=== PATIENT | female | born 1955 | race Caucasian/White ===

== ENCOUNTER 2020-03-17 09:43 | Outpatient (CLI) | payer MEDICARE, SELFPAY ==
[2020-03-17 10:50] LABS: Alanine Aminotransferase 16 U/L (4-35); Albumin Level 4.4 g/dL (3.5-5.1); Alkaline Phosphatase 75 U/L (38-126); Anion Gap 10 mmol/L (8-16); Aspartate Amino Transferase 21 U/L (14-36); Bilirubin,Total 0.8 mg/dL (0.2-1.3); Blood Urea Nitrogen 24 mg/dL (7-17); Calcium 10.2 mg/dL (8.4-10.2); Carbon Dioxide 28 mmol/L (22-30); Chloride 105 mmol/L (98-107); Cholesterol 139 mg/dL (0-200); Estimated Glomerular Filt Rate > 60; Glucose 107 mg/dL (65-105); HDL Direct 40 mg/dL; Potassium 4.8 mmol/L (3.4-5.0); Sodium 143 mmol/L (137-145); Triglycerides 94 mg/dL (<150)
[2020-03-17 11:07] LABS: LDL Cholesterol Direct 77 mg/dL
[2020-03-17 11:20] LABS: Thyroid Stimulating Hormone 0.631 uIU/mL (0.465-4.680)
[2020-03-18 04:02] LABS: Free T4 Free Thyroxine 1.22 ng/mL (0.78-2.19)
== END 2020-03-17 09:44 | disposition home or self-care (01) ==
PROVIDERS: PCP Internal Medicine; Visit Provider Nurse Practitioner
DX: E78.5 Hyperlipidemia, unspecified (principal); E03.9 Hypothyroidism, unspecified
CPT/HCPCS: 36415; 80053; 80061; 84439; 84443

== ENCOUNTER 2020-04-10 13:47 | Outpatient (CLI) | payer MEDICARE, SELFPAY ==
--- NOTE | ~2020-04-10 | XR_ITS ---
XR lumbar spine 2-3V 04/10/2020 14:13 Indication: Low back pain Procedure: 3 views lumbar spine Comparison: Comparison to multiple prior studies sequentially, with oldest reviewed study dated 11/2015. Findings: There is disc narrowing and endplate degenerative change at L1-2 and L2-3. There are mild f acet hypertrophic changes at L5-S1. No acute fracture or traumatic malalignment. There is atheroscler osis of the aorta. Mild superior endplate compression deformity of L3 which appears chronic. There ar e cholecystectomy clips. Impression: 1: Stable mild-moderate lumbar spondylosis. 2: Stable chronic mild superior endplate compression deformity. Reviewed, dictated and finalized at location B. Impression: 1: Stable mild-moderate lumbar spondylosis. 2: Stable chronic mild superior endplate compression deformity.
== END 2020-04-10 13:48 | disposition home or self-care (01) ==
PROVIDERS: PCP Internal Medicine; Visit Provider Internal Medicine
DX: M47.896 Other spondylosis, lumbar region (principal)
CPT/HCPCS: 72100

== ENCOUNTER 2020-04-24 16:59 | Outpatient (CLI) | payer MEDICARE, SELFPAY ==
--- NOTE | ~2020-04-24 | MR_ITS ---
EXAMINATION: MR lumbar spine wo con DATE: 04/24/2020 18:31 INDICATION: Low back pain. TECHNIQUE: Magnetic resonance imaging (MRI) of the lumbar spine was performed without intravenous con trast. Sequences included sagittal T2-weighted FSE, sagittal T2-weighted FS FSE, sagittal T1-weighted FSE, and axial T2-weighted FSE. COMPARISON: Lumbar spine MRI 12/19/2007 FINDINGS: There is 3 mm retrolisthesis of L1 on L2 and L2 on L3. Vertebral body heights are normal. T here is moderately decreased disc height at L1-L2 and mildly decreased disc height at L2-L3. The dist al spinal cord signal intensity is normal. The conus medullaris is at L1. The following disc levels a re specifically discussed: L1-L2: The disc is bulging and has an annular fissure. There is mild right facet joint osteoarthritis . There is mild bilateral neural foraminal stenosis. There is mild central canal stenosis. L2-L3: The disc is bulging with superimposed right subarticular extrusion with superior extension 11 mm to the infrapedicular level. There is mild bilateral facet joint osteoarthritis. There is mild rachael ateral neural foraminal stenosis. There is mild central canal stenosis. L3-L4: The disc is bulging. There is mild bilateral facet joint osteoarthritis. There is mild bilater al neural foraminal stenosis. There is mild central canal stenosis. L4-L5: The disc is mildly bulging. There is mild bilateral facet joint osteoarthritis. There is mild bilateral neural foraminal stenosis. There is no central canal stenosis. L5-S1: The disc does not extend beyond the endplate margin. There is mild bilateral facet joint osteo arthritis. There is no neural foraminal stenosis. There is no central canal stenosis. IMPRESSION: 1. Moderate lumbar spondylosis, worsened from 12/19/2007. Reviewed, dictated and finalized at location A. [employer] WORK[employer]
== END 2020-04-24 17:00 ==
PROVIDERS: PCP Internal Medicine; Visit Provider Nurse Practitioner
DX: M47.896 Other spondylosis, lumbar region (principal)
CPT/HCPCS: 72148

== ENCOUNTER 2020-09-15 09:49 | Outpatient (CLI) | payer MEDICARE, SELFPAY ==
[2020-09-15 10:23] LABS: Alanine Aminotransferase 18 U/L (4-35); Alkaline Phosphatase 72 U/L (38-126); Anion Gap 5 mmol/L (8-16); Aspartate Amino Transferase 26 U/L (14-36); Bilirubin,Total 1.4 mg/dL (0.2-1.3); Blood Urea Nitrogen 22 mg/dL (7-17); Calcium 9.2 mg/dL (8.4-10.2); Carbon Dioxide 29 mmol/L (22-30); Chloride 108 mmol/L (98-107); Cholesterol 155 mg/dL (0-200); Estimated Glomerular Filt Rate > 60; Glucose 89 mg/dL (65-105); HDL Direct 33 mg/dL; Potassium 4.2 mmol/L (3.4-5.0); Sodium 142 mmol/L (137-145); Triglycerides 130 mg/dL (<150)
[2020-09-15 10:34] LABS: LDL Cholesterol Direct 92 mg/dL
== END 2020-09-15 09:50 | disposition home or self-care (01) ==
PROVIDERS: PCP Internal Medicine; Visit Provider Internal Medicine
DX: I10 Essential (primary) hypertension (principal); Z79.899 Other long term (current) drug therapy; E78.5 Hyperlipidemia, unspecified; E03.9 Hypothyroidism, unspecified
CPT/HCPCS: 36415; 80053; 80061; 84443

== ENCOUNTER 2021-01-27 11:09 | Outpatient (CLI) | payer MEDICARE, SELFPAY ==
[2021-01-27 12:06] LABS: Alanine Aminotransferase 14 U/L (4-35); Albumin Level 4.1 g/dL (3.5-5.1); Alkaline Phosphatase 76 U/L (38-126); Anion Gap 6 mmol/L (8-16); Aspartate Amino Transferase 20 U/L (14-36); Bilirubin,Total 0.8 mg/dL (0.2-1.3); Blood Urea Nitrogen 19 mg/dL (7-17); Calcium 9.9 mg/dL (8.4-10.2); Carbon Dioxide 27 mmol/L (22-30); Chloride 108 mmol/L (98-107); Estimated Glomerular Filt Rate > 60; Glucose 95 mg/dL (65-110); HDL Direct 36 mg/dL; Potassium 4.9 mmol/L (3.4-5.0); Sodium 141 mmol/L (137-145); Triglycerides 94 mg/dL (<150)
[2021-01-27 12:12] LABS: Cholesterol 117 mg/dL (0-200)
[2021-01-27 12:16] LABS: LDL Cholesterol Direct 53 mg/dL
[2021-01-27 13:47] LABS: Vitamin D 25 Hydroxy 42.1 ng/mL
== END 2021-01-27 11:10 | disposition home or self-care (01) ==
PROVIDERS: PCP Internal Medicine; Visit Provider Nurse Practitioner
DX: E03.9 Hypothyroidism, unspecified (principal); E78.49 Other hyperlipidemia; E55.9 Vitamin D deficiency, unspecified; N95.1 Menopausal and female climacteric states
CPT/HCPCS: 36415; 80053; 80061; 82306; 84443

== ENCOUNTER 2021-01-28 09:20 | Outpatient (CLI) | payer MEDICARE, SELFPAY ==
[2021-01-28 09:40] LABS: Basophils Percent Auto 0.4 % (0.2-1.2); Eosinophils Absolute Auto 0.2 K/mm3 (0-0.3); Eosinophils Percent Auto 2.3 % (0-4.4); Hematocrit 39.9 % (37.0-47.0); Immature Granulocyte Absolute 0.03 K/mm3 (0.00-0.031); Immature Granulocyte Percent A 0.4 % (0-0.5); Lymphocytes Absolute Auto 1.95 K/mm3 (0.9-3.2); Mean Corpuscular HGB Conc 32.6 g/dl (32-36); Mean Corpuscular Hemoglobin 28.4 pg (26-34); Mean Corpuscular Volume 87.3 fl (80-100); Mean Platelet Volume 9.8 fl (7.4-10.4); Monocytes Absolute Auto 0.4 K/mm3 (0.1-0.6); Monocytes Percent Auto 4.9 % (2.6-8.5); Neutrophils Absolute Auto 5.2 K/mm3 (1.3-6.7); Platelet Count Result 195 k/mm3 (150-375); Red Blood Count 4.57 M/mm3 (4.2-5.4); Red Cell Distribution Width 14.5 % (11.5-14.5); White Blood Count 7.8 K/mm3 (4.5-10.0)
[2021-01-28 10:23] LABS: Add Urine Microscopic? YES; Appearance Urine Clear (Clear); Bilirubin Urine Negative (Negative); Blood Urine Negative (Negative); Color Urine Yellow (Yellow); Glucose Urine UA Negative (Negative); Ketones Urine Negative (Negative); Leukocyte Esterase Ur 3+ LEU/UL (Negative); Mucus Urine Rare /lpf; Nitrate Urine Negative (Negative); Protein Urine Negative (Negative); RBC Urine 0-2 /hpf (0-2); Specific Grav Ur 1.018 (1.001-1.035); Squamous Epithelial Cell Urine Occasional /hpf (Few); Urobilinogen Urine Negative mg/dL (<2.0); WBC Urine 16-20 /hpf
[2021-01-28 10:25] LABS: Iron 57 ug/dL (37-170)
[2021-01-28 10:35] LABS: Percent Iron Saturation 17 % (20-50)
== END 2021-01-28 09:21 | disposition home or self-care (01) ==
LOC: ANHLAB 09:23
PROVIDERS: PCP Internal Medicine; Visit Provider Nurse Practitioner
DX: R53.83 Other fatigue (principal); R32 Unspecified urinary incontinence
CPT/HCPCS: 36415; 81001; 83540; 83550; 85025; 87086; 87088

== ENCOUNTER 2021-02-02 08:30 | Outpatient (RCR) | payer MEDICARE, SELFPAY ==
--- NOTE | 2021-01-02 09:21 | PTOPEVAL ---
PHYSICAL THERAPY EVALUATION Thank you for referring Makenna Sauceda to [facility].? Denzel was evaluated for the dx of low back pain/radiculopathy. The patient is scheduled to be seen for therapy? 2 x/week for 4 weeks. Please review, sign, date and return this plan of care KARISSA. I agree with and certify that the following plan of care is medically necessary. Referring Physician Date Attending Provider: Jaspal Mcknight DO Referring Provider: *RICHARD Outpatient Evaluation Start: 01/02/21 08:05 Freq: Status: Active Protocol: Document 01/02/21 08:05 MLV (Rec: 01/02/21 09:06 MLV [email or web address]) Therapy Assessment Status Assessment Status Assessment Status Evaluation Evaluation Information Problem Diagnosis low back pain Onset 1 year increased pain Cause overlifting lately Additional Evaluation Detail The patient reports a long hx of low back pain since before 2007 then pain has gotten worse in the last year. The pateint was sent to pain mgmt and offered injections but is looking to see a different MD for this. The patient lives home alone and helps with her significant other physically, and does all of the household tasks/shopping etc. The patient patient takes tramadol but reports poor relief with it. Subjective Information Patient must assist her Query Text:As Reported By Patient/ significant other or is not Family able to stay living there and she has no other options for living. Diagnostic Tests X-Rays For This Problem Yes: worsening spondylosis Previous Treatments Previous Treatments For This Problem never had therapy for back pain Pain Assessment Timing of Pain Assessment Timing of Pain Assessment Assessment Pain Scale Pain Scale Used Numeric (1 - 10) Self Report Pain Assessment Lower Back Reported Pain Level 5 Pain Description Dull,Shooting,Tender on Palpation Pain Radiation Left Shoulder,Right Leg,Right Shoulder Radicular Pain Location right leg Pain Frequency Chronic,Continuous Greatest Pain Intensity 8 Pain Aggravating Factors Lifting,Weight Bearing/ Standing Pain Score
--- NOTE | 2021-01-21 14:52 | PCPTNOTE ---
Patient called and states she is not feeling well and cannot make it in to therapy this date.
--- NOTE | 2021-02-02 09:00 | PTOPEVAL ---
PHYSICAL THERAPY DISCHARGE Thank you for referring Makenna Sauceda to [facility].? The patient has completed 8 visits for dx of low back pain. Goals minimally/not met. DC PT. Please review, sign, date and return this plan of care KARISSA. I agree with and certify the following plan of care. Referring Physician Date Attending Provider: Jaspal Mcknight DO Referring Provider: *PT Outpatient discharge Start: 01/02/21 08:05 Freq: Status: Active Protocol: Document 02/02/21 08:38 MLV (Rec: 02/02/21 09:00 MLV [id number]) Therapy Assessment Status Assessment Status Assessment Status Discharge Evaluation Information Problem Diagnosis low back pain Onset 1 year increased pain Cause overlifting lately Additional Evaluation Detail The patient feels she is about 50% better overall and feels the therapy was very tolerable, but the pain is only relieved somewhat. The patient understands that her daily activities affect her pain due to caring for her significant other, but she has to do it. The patient reports having an appt today for pain mgmt. Pain Assessment Timing of Pain Assessment Timing of Pain Assessment Assessment Pain Scale Pain Scale Used Numeric (1 - 10) Self Report Pain Assessment Lower Back Reported Pain Level 6 Pain Description Dull,Heavy Pain Frequency Continuous Pain Score Pain Score 6: Self Report Interventions Used Interventions Used By Clinicians Education,Electrical Stimulation,Exercise,Heat, Manual Therapy Techniques Pain Relief Interventions Used By Exercise,Heat,Medication, Patient Position Change Other Alleviating Interventions tramadol Cervical and Lumbar ROM Lumbar ROM Lumbar Flexion Active [place] Query Text:Hands to: Lumbar Extension (0-40) 20 Query Text:Active in Degrees Lumbar Lateral Flexion Right (0-40) 30 Query Text:Active in Degrees Lumbar Lateral Flexion Left (0-40) 30 Query Text:Active in Degrees Lateral Rotation Right (0-45) 40 Query Text:Active in Degrees Lateral Rotation Left (0-45) 40 Query Text:Active in Degrees Lumbar Comments pain with flexion, left lat flexion, right rotation Lower Extremity Range of Motion General Lower Extremity Range of Motion Reason Not Measured
== END 2021-02-03 14:23 | disposition home or self-care (01) ==
LOC: ANHPT 08:30
PROVIDERS: PCP Internal Medicine; Visit Provider Internal Medicine
DX: M54.42 Lumbago with sciatica, left side (principal); G89.29 Other chronic pain
CPT/HCPCS: 97014; 97110; 97140; 97162; 97530; G0283

== ENCOUNTER 2021-02-13 13:52 | Outpatient (CLI) | payer MEDICARE, SELFPAY ==
--- NOTE | ~2021-02-13 | CT_ITS ---
EXAMINATION: CT abdomen pelvis wo con DATE: 02/13/2021 14:17 INDICATION: Left flank pain. History kidney stones. Hematuria. TECHNIQUE: Computed tomography (CT) of the abdomen and pelvis was performed without intravenous contr ast. Automated exposure control and iterative reconstruction technique were employed. Exam dose: 180 .12 mGy-cm total exam DLP. COMPARISON: 10/28/[address] abdomen pelvis FINDINGS: Mild discoid atelectasis or scarring in the lower lung zones. Normal heart size. No pericar dial or pleural effusion. Small sliding hiatal hernia. Status post cholecystectomy; this may account for prominence of the extrahepatic bile ducts. Recommen d correlation with serum bilirubin.. Calcified hepatic and splenic granulomas. No hepatic, splenic, pancreatic, adrenal or renal space-occ upying mass lesion is evident on this limited noncontrast examination. There is a small nonobstructing mid right renal calculus. No other urinary tract calculus or hydroure teronephrosis is detected. The urinary bladder is largely evacuated and not optimally evaluated. There is atherosclerotic calcification but normal caliber of the abdominal aorta. No intraperitoneal or retroperitoneal or pelvic mass lesion or adenopathy or ascites. No bowel obstruction, bowel wall thickening, pneumatosis or intraperitoneal free air is evident. No e vidence of appendicitis is detected. Included skeletal structures are unremarkable other than degenerative changes of the thoracic and lum bar spine. IMPRESSION: Small sliding hiatal hernia Status post cholecystectomy, which may account for mild prominence of the extrahepatic bile ducts. Re commend correlation with serum bilirubin Small nonobstructing mid right renal calculus Reviewed, dictated and finalized at Location A. Reviewed, dictated and finalized at location A. IMPRESSION: Small sliding hiatal hernia Status post cholecystectomy, which may account for mild prominence of the extra hepatic bile ducts. Recommend correlation with serum bilirubin Small nonobstructing mid right renal calculus
--- NOTE | ~2021-02-13 | XR_ITS ---
XR abdomen/kub 1V DATE: 02/13/2021 14:19 INDICATION: Left flank pain. History of kidney stones. TECHNIQUE: AP projection, 2 views COMPARISON: 02/13/2021 CT abdomen pelvis FINDINGS: Surgical clips, right upper quadrant, consistent with cholecystectomy. Surgical clips in the medial right upper abdomen. No bowel obstruction is detected. The psoas shadows are intact. No visceromegaly is evident. The lower lung zones are clear. IMPRESSION: Nonspecific abdomen; no obvious urinary tract calcification Reviewed, dictated and finalized at Location A. Reviewed, dictated and finalized at location A.
== END 2021-02-13 13:53 | disposition home or self-care (01) ==
LOC: ANHIMG 13:53
PROVIDERS: PCP Internal Medicine; Visit Provider Urology
DX: K44.9 Diaphragmatic hernia without obstruction or gangrene (principal); Z90.49 Acquired absence of other specified parts of digestive tract; N20.0 Calculus of kidney
CPT/HCPCS: 74018; 74176

== ENCOUNTER 2021-03-25 09:33 | Outpatient (CLI) | payer MEDICARE, SELFPAY ==
--- NOTE | ~2021-03-25 | XR_ITS ---
XR shoulder LT min 2V DATE: 03/25/2021 10:01 INDICATION: Left shoulder pain following a fall TECHNIQUE: 4 views COMPARISON: None FINDINGS: There is degenerative change of the left acromioclavicular joint. No fracture or dislocation, periosteal reaction or bone destruction or abnormal left shoulder soft ti ssue calcification is noted. IMPRESSION: Degenerative change at left acromioclavicular joint Reviewed, dictated and finalized at location A.
== END 2021-03-25 09:34 | disposition home or self-care (01) ==
LOC: ANHIMG 09:40
PROVIDERS: PCP Internal Medicine; Visit Provider Internal Medicine
DX: M19.012 Primary osteoarthritis, left shoulder (principal)
CPT/HCPCS: 73030

== ENCOUNTER 2021-04-01 13:04 | Outpatient (CLI) | payer MEDICARE, SELFPAY ==
--- NOTE | ~2021-04-01 | XR_ITS ---
XR foot RT min 3V DATE: 04/01/2021 13:26 INDICATION: Right foot pain following ground-level fall 2 weeks ago TECHNIQUE: 4 views COMPARISON: 09/22/2017 right foot FINDINGS: Mild plantar calcaneal enthesopathy, without erosive change or periostitis. Mild osteoarthritis at the first metatarsophalangeal joint. No fracture, dislocation, periosteal reaction or bone destruction. IMPRESSION: Mild plantar calcaneal enthesopathy Mild osteoarthritis at first metatarsophalangeal joint Reviewed, dictated and finalized at location B.
--- NOTE | ~2021-04-01 | XR_ITS ---
XR hip RT min 2V DATE: 04/01/2021 13:27 INDICATION: Right hip pain following ground-level fall 2 weeks ago TECHNIQUE: AP and lateral views COMPARISON: 05/25/2016 pelvis and bilateral hips FINDINGS: No fracture or dislocation, avascular necrosis or bone destruction of the right hip. Osteopenia. IMPRESSION: Osteopenia Reviewed, dictated and finalized at location B. IMPRESSION: Osteopenia
--- NOTE | ~2021-04-01 | XR_ITS ---
XR knee RT 3V DATE: 04/01/2021 13:26 INDICATION: Right knee pain following ground-level fall 2 weeks ago TECHNIQUE: 3 views COMPARISON: None FINDINGS: Osteopenia. No fracture or dislocation or joint effusion. Joint spaces are relatively prese rved. No radiopaque intra-articular loose body or chondrocalcinosis. IMPRESSION: Osteopenia Reviewed, dictated and finalized at location B. IMPRESSION: Osteopenia
== END 2021-04-01 13:05 | disposition home or self-care (01) ==
LOC: ANHIMG 13:06
PROVIDERS: PCP Internal Medicine; Visit Provider Internal Medicine
DX: M77.31 Calcaneal spur, right foot (principal); M85.861 Other specified disorders of bone density and structure, right lower leg; M85.851 Other specified disorders of bone density and structure, right thigh
CPT/HCPCS: 73502; 73562; 73630

== ENCOUNTER 2021-04-06 08:53 | Outpatient (CLI) | payer MEDICARE, SELFPAY ==
--- NOTE | ~2021-04-06 | MR_ITS ---
EXAMINATION: MR shoulder LT wo con DATE: 04/06/2021 09:33 INDICATION: Specified left shoulder pain TECHNIQUE: Magnetic resonance imaging (MRI) of the left shoulder was performed without intravenous co ntrast. Sequences included axial PD-weighted FS FSE, coronal oblique PD-weighted FS FSE, coronal obli que T2-weighted FS FSE, sagittal PD-weighted FS FSE, and sagittal T1-weighted SE. COMPARISON: None. FINDINGS: Coracoacromial arch: The acromion undersurface is curved in morphology (type II). The coracoacromial ligament is normal. M ild acromioclavicular osteoarthritis. Small loose body versus heterotopic ossicle along the cephalad capsule of the joint space. Rotator cuff: Mild supraspinatus and infraspinatus tendinopathy without discrete tear. The teres minor and subscapu thai tendons are normal. Normal rotator cuff muscle bulk and signal. Biceps tendon, glenoid labrum and glenohumeral cartilage: Long head of the biceps tendon is normal. Normal [place] complex with absent anterosuperior glenoid la lydia and thickened cordlike middle glenohumeral ligament. There is a superior, anterior to posterior tear of the glenoid labrum (SLAP tear) at the 12:00-11:00 position. There is mild partial-thickness c artilage loss with smooth chondral surface at the apex of the humeral head. Otherwise normal glenohum eral cartilage. Fluid: Minimal glenohumeral joint effusion at the axillary recess and deep subscapular recess. Proportional small amount of fluid in the long head biceps tendon sheath. No loose osteochondral bodies. Mild incr eased fluid signal in the subacromial/subdeltoid bursa consistent with minimal bursitis. Bones: Normal marrow signal with no edema, fracture or pathologic marrow replacing process. IMPRESSION: 1. Normal variant glenoid labral [place] complex with small SLAP tear at the superior glenoid labrum. 2. Mild acromioclavicular and minimal glenohumeral osteoarthritis. 3. Supraspinatus and infraspinatus tendinopathy without discrete tear. 4. Minimal glenohumeral bursitis. Reviewed, dictated and finalized at location A. IMPRESSION: 1. Normal variant glenoid labral [place] complex with small SLAP tear at the sup erior glenoid labrum. 2. Mild acromioclavicular and minimal glenohumeral osteoarthritis. 3. Supraspinatus and infraspinatus tendinopathy without discrete tear. 4. Minimal glenohumeral bursitis.
== END 2021-04-06 08:54 | disposition home or self-care (01) ==
PROVIDERS: PCP Internal Medicine; Visit Provider Internal Medicine
DX: M75.52 Bursitis of left shoulder (principal); M19.012 Primary osteoarthritis, left shoulder; S43.432A Superior glenoid labrum lesion of left shoulder, initial encounter
CPT/HCPCS: 73221

== ENCOUNTER 2021-07-02 12:30 | Outpatient (RCR) | payer MEDICARE, SELFPAY ==
--- NOTE | 2021-04-15 15:02 | PTOPEVAL ---
Thank you for referring Makenna Sauceda to [facility].? The patient is scheduled to be seen for therapy? 1-2 x/week for 5 weeks. Please review, sign, date and return this plan of care KARISSA. I agree with and certify that the following plan of care is medically necessary. Referring Physician Date Attending Provider: Jaspal Mcknight DO Diagnosis left knee, hip and ankle pain Onset 03/20/21 Additional Evaluation Detail She had a fall on 03/20/21 over lawn edging at a commercial property. She does not want her left shoulder addressed at this time until she has a f/u with orthopedic MD on 04/22/21. She had a MRI of shoulder indicating a tear. She is retired. 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 Subjective Information She c/o anterior/lateral hip Query Text:As Reported By Patient/ pain which gives out at home Family . She will be standing or walking when it gives out. She reports increased pain with prolonged sitting. She is limited with sleeping on right side with hypersensitivity of ankle with pressure. She is limited with standing, walking, steps, ADL's, squating and remote sensing specialist. She has 30 steps at home with railing. Pain Assessment Right Foot/Feet Reported Pain Level 3 Pain Description Aching Pain Frequency Continuous Lowest Pain Intensity 3 Greatest Pain Intensity 5 Pain Aggravating Factors ADL's,Bending,Exercise/ Activity,Lifting,Walking, Weight Bearing/Standing Right Knee(s) Reported Pain Level 4 Pain Description Soreness,Tender on Palpation Pain Frequency Continuous Lowest Pain Intensity 4 Greatest Pain Intensity 7 Pain Aggravating Factors ADL's,Bending,Exercise/ Activity,Lifting,Procedure or Surgery,Stair Climbing,Walking ,Weight Bearing/Standing Right Hip(s) Reported Pain Level 5 Pain Description Alfie
--- NOTE | 2021-04-21 11:24 | PCPTNOTE ---
Patient did not show up for scheduled appointment this date. Called & patient stated she forgot.
--- NOTE | 2021-04-30 09:52 | PCPTNOTE ---
Patient did not show up for scheduled appointment this date.Called pt who stated she forgot and was busy and could not talk.
[2021-05-08 13:29] VITALS: BP_SYST 110
--- NOTE | 2021-05-08 16:11 | PTOPEVAL ---
Thank you for referring Makenna Sauceda to [facility] [place].?Assessment completed for left shoulder impairment. Will continue f/u visits to address UE and LE impairments. New goals added to POC. The patient is scheduled to be seen for therapy 1-2 x/week for 8 weeks. Please review, sign, date and return this plan of care KARISSA. I agree with and certify that the following plan of care is medically necessary. Referring Physician Date Attending Provider: Jaspal Mcknight DO Referring Provider: Dr. Shon Miller Diagnosis left shoulder pain Onset 03/20/21 Additional Evaluation Detail She had a fall on 03/20/21 over lawn edging at a commercial property. MRI: 1.small SLAP tear at the superior glenoid labrum. 2. Mild acromioclavicular and minimal glenohumeral osteoarthritis. 3. Supraspinatus and infraspinatus tendinopathy without discrete tear. 4. Minimal glenohumeral bursitis. Subjective Information She has been assessed for her Query Text:As Reported By Patient/ right LE impairement. After Family her f/u with ortho doctor, he also wants her to receive therapy for the left shoulder. She reports limitations with reaching motions in all directions, lying on left side , ADL's for donning/doffing tops, carrying or lifting objects. She has trouble sleeping due to pain. She states she needs medication to help her with the pain. Pain Assessment Left Shoulder(s) Reported Pain Level 8 Pain Description Aching,Tender on Palpation Pain Frequency Continuous Lowest Pain Intensity 6 Greatest Pain Intensity 10 Pain Aggravating Factors ADL's,Exercise/Activity, Lifting,Palpation,Prolonged Position Upper Extremity Range of Motion Scapular/ Shoulder Range of Motion Left Scapular: Retraction Hypomobile Scapular: Protraction Hypomobile Scapular Downward Rotation Hypomobile Scapular Upward Rotation Hypomobile Shoulder Flexion - Active 70 Shoulder Flexion - Passive 90 Shoulder Extension - Active 25
--- NOTE | 2021-06-18 07:28 | PCPTNOTE ---
Patient called & cancelled scheduled appointment this date, patient's request.
--- NOTE | 2021-06-23 12:41 | PCPTNOTE ---
Patient called & cancelled scheduled appointment this date due to not feeling well.
--- NOTE | 2021-06-25 11:59 | PCPTNOTE ---
Patient called & cancelled scheduled appointment this date due to being Covid +
[2021-07-02 12:28] VITALS: BP_SYST 85
--- NOTE | 2021-07-02 14:48 | PTOPEVAL ---
Physical Therapy Discharge Summary Thank you for referring Makenna Sauceda to [facility] [place].?Makenna has been seen for 7 therapy visits with extended periods of missed therapy visits. She has partially achieved her therapy goals at this time. See summary below for objective measures and assessment. Per pt request, will DC skilled therapy services at this time. Please review, sign, date and return this discharge summary KARISSA. I agree with and certify that the following plan of care is medically necessary. Referring Physician Date Attending Provider: Jaspal Mcknight DO Referring Provider: Dr. Shon Miller MD Diagnosis left shoulder pain, right foot /knee and hip pain Onset 03/20/21 Additional Evaluation Detail She had a fall on 03/20/21 over lawn edging at a commercial property. MRI: 1.small SLAP tear at the superior glenoid labrum. 2. Mild acromioclavicular and minimal glenohumeral osteoarthritis. 3. Supraspinatus and infraspinatus tendinopathy without discrete tear. 4. Minimal glenohumeral bursitis. Subjective Information Reports the injection helped Query Text:As Reported By Patient/ with her pain for 1 wk. She Family has increased pain with prolonged sleeping on left side and increased use of left UE. Reports her leg and ankle are sore to the touch. She thinks she broke a bone with her fall. Denies any issued with her right hip, but cont pain with knee and ankle. Cont to c/o of her right knee giving out with steps. c/o pain on the lateral aspect of foot. Pain Assessment Left Shoulder(s) Reported Pain Level 6 Pain Description Aching,Tender on Palpation Pain Frequency Chronic,Continuous Lowest Pain Intensity 6 Greatest Pain Intensity 9 Pain Aggravating Factors Exercise/Activity,Prolonged Position Right Foot/Feet Reported Pain Level 0 Pain Description Aching Lowest Pain Intensity 0 Greatest Pain Intensity 5 Pain Aggravating Factors Prolonged Position Right Knee(s) Reported Pain Level
== END 2021-07-03 14:23 | disposition home or self-care (01) ==
LOC: ANHPT 12:30
PROVIDERS: PCP Internal Medicine; Visit Provider Internal Medicine
DX: M25.559 Pain in unspecified hip (principal); M25.519 Pain in unspecified shoulder; M79.671 Pain in right foot; W19.XXXA Unspecified fall, initial encounter
CPT/HCPCS: 97110; 97116; 97140; 97162

== ENCOUNTER 2021-07-27 15:55 | Emergency (ER) | payer MEDICARE, SELFPAY ==
[2021-07-27 16:08] VITALS: BP 174/106; PULSE 68; RESP 18; TEMP 36.6; O2SAT 100
--- NOTE | 2021-07-27 16:37 | ED.GENADULT ---
HPI - General Adult General Chief complaint: Dental/Oral Stated complaint: Facial Swelling Time Seen by Provider: 07/27/21 16:22 Source: patient and RN notes reviewed Mode of arrival: ambulatory Limitations: no limitations History of Present Illness HPI narrative: Patient presents today complaining of pain to the upper gumline since last night with swelling to the face and warmth that started today. She currently rates her pain 7/10. She took half of a Lorman that she takes chronically for possible rotator cuff tear with some relief. Denies fever, shortness of breath, or difficulty swallowing. MD complaint: Facial swelling Related Data Home Medications Medication Instructions Recorded Confirmed aspirin 81 mg tablet,delayed 81 mg PO DAILY 06/27/19 07/27/21 release meclizine 25 mg tablet 25 mg PO DAILY tablet 09/15/20 07/27/21 metoprolol tartrate 25 mg tablet 25 mg PO DAILY tablet 10/13/20 07/27/21 nitroglycerin 0.4 mg sublingual 0.4 mg SUBLINGUAL Q5M PRN 10/13/20 07/27/21 tablet Allergies Allergy/AdvReac Type Severity Reaction Status Date / Time ibuprofen Allergy Dyspnea / Verified 07/27/21 16:40 SOB iodine AdvReac Swelling Verified 07/13/21 11:23 of Lip/Tongue/Throat shellfish derived AdvReac Swelling Verified 07/13/21 11:23 of Lip/Tongue/Throat Review of Systems Review of Systems: CONSTITUTIONAL: Denies body aches, fever, chills, or sweats. EYES: Denies visual changes, redness, or discharge. ENT: Denies rhinorrhea, congestion, sore throat, or otalgia.+ Facial swelling, gum pain CARDIOVASCULAR: Denies chest pain, palpitations, or edema. RESPIRATORY: Denies cough or dyspnea. GASTROINTESTINAL: Denies abdominal pain, nausea, vomiting, or diarrhea. GENITOURINARY: Denies dysuria or hematuria. SKIN: Denies rash, itching, or wounds. MUSCULOSKELETAL: Denies back pain, joint pain, or myalgia. NEUROLOGIC: Denies headache, numbness, tingling, or weakness. PSYCH: Denies depression or anxiety. 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 Depression with anxiety Essential (primary) hypertension Fatigue Gastroesophageal reflux disease with esophagitis Grief reaction History of stress test Hx of adenomatous colonic polyps Hx of renal calculi Hx of renal cell cancer Hyperlipidemia Left flank pain Low back pain potentially associated with radiculopathy Major depressive disorder, single episode, unspecified Medication management Nonintractable headache Osteopenia after menopause Other insomnia Postmenopausal disorder Primary osteoarthritis of both hands Psoriasis Rotator cuff tear Skin tag History of Excision of (under both arms) Urinary Incontinence Vitamin D deficiency Vitamin D deficiency, unspecified Surgical History Surgical History History of coronary artery stent placement History of cryosurgery Cryoablation for removal of renal cancer History of hysterectomy (~1991) Family History Family History Sibling Patient's brother is in good health Family history of malignant neoplasm of kidney Father Cerebrovascular accident Family history of malignant neoplasm of kidney Patient's father is Mother Family history of chronic obstructive pulmonary disease Family history of lung cancer Patient's mother is Cerebrovascular accident Other Diabetes mellitus Family history of arthritis Family history of lupus erythematosus Family history of malignant neoplasm Hypertension Social History Social History Smoking status: Never smoker Second h
== END 2021-07-27 16:47 | disposition home or self-care (01) ==
PROVIDERS: Emergency Provider Nurse Practitioner; PCP Internal Medicine
DX: K04.7 Periapical abscess without sinus (principal); E03.9 Hypothyroidism, unspecified; K21.00 Gastro-esophageal reflux disease with esophagitis, without bleeding; E78.5 Hyperlipidemia, unspecified; M81.0 Age-related osteoporosis without current pathological fracture; M19.042 Primary osteoarthritis, left hand; M19.041 Primary osteoarthritis, right hand; Z79.82 Long term (current) use of aspirin; Z95.5 Presence of coronary angioplasty implant and graft
CPT/HCPCS: 99213; G0463

== ENCOUNTER 2021-08-11 10:07 | Outpatient (CLI) | payer MEDICARE, SELFPAY ==
[2021-08-11 10:55] LABS: Alanine Aminotransferase 16 U/L (4-35); Alkaline Phosphatase 61 U/L (38-126); Anion Gap 7 mmol/L (8-16); Aspartate Amino Transferase 23 U/L (14-36); Blood Urea Nitrogen 17 mg/dL (7-17); Calcium 9.1 mg/dL (8.4-10.2); Carbon Dioxide 25 mmol/L (22-30); Chloride 107 mmol/L (98-107); Cholesterol 110 mg/dL (0-200); Estimated Glomerular Filt Rate > 60; Glucose 82 mg/dL (65-110); HDL Direct 39 mg/dL; Sodium 139 mmol/L (137-145); Triglycerides 80 mg/dL (<150)
[2021-08-11 11:06] LABS: LDL Cholesterol Direct 53 mg/dL
[2021-08-11 11:12] LABS: Vitamin D 25 Hydroxy 19.5 ng/mL
== END 2021-08-11 10:08 | disposition home or self-care (01) ==
PROVIDERS: PCP Internal Medicine; Visit Provider Nurse Practitioner
DX: E55.9 Vitamin D deficiency, unspecified (principal); E78.49 Other hyperlipidemia; E03.9 Hypothyroidism, unspecified
CPT/HCPCS: 36415; 80053; 80061; 82306; 84443

== ENCOUNTER 2022-03-02 16:23 | Emergency (ER) | payer MEDICARE, SELFPAY ==
[2022-03-02 16:39] VITALS: BP 122/45; PULSE 51; RESP 18; TEMP 35.4; O2SAT 99
--- NOTE | 2022-03-02 17:17 | ED.FALL ---
HPI - Fall General Chief Complaint: Fall Stated Complaint: Fall Injury, Head Injury Time Seen by Provider: 03/02/22 16:40 History of Present Illness HPI Narrative: Makenna Sauceda is a 67 yo female with PMH of anxiety, high cholesterol, hypothyroid, COVID, HTN, who is 8 days into COVID who fell in the park today when she became dizzy and smacked her head on a concrete slab. She has a 3 cm laceration vertically down her forehead into her hairline. Controlled bleeding. swelling around lac Related Data Home Medications Medication Instructions Recorded Confirmed aspirin 81 mg tablet,delayed 81 mg PO DAILY 06/27/19 03/02/22 release (Aspir-) meclizine 25 mg tablet 25 mg PO DAILY 09/15/20 03/02/22 nitroglycerin 0.4 mg sublingual 0.4 mg sublingual Q5M PRN chest 10/13/20 03/02/22 tablet pain Allergies Allergy/AdvReac Type Severity Reaction Status Date / Time ibuprofen Allergy Dyspnea / Verified 03/02/22 18:31 SOB iodine AdvReac Swelling Verified 03/02/22 18:31 of Lip/Tongue/Throat shellfish derived AdvReac Swelling Verified 03/02/22 18:31 of Lip/Tongue/Throat Review of Systems Review of Systems: CONSTITUTIONAL: Denies fever, chills, sweats. EYES: Denies visual changes, redness, discharge. ENT: Denies rhinorrhea, congestion, sore throat, otalgia. CARDIOVASCULAR: Denies chest pain, palpitations, edema. RESPIRATORY: Denies dyspnea, wheezing, cough GASTROINTESTINAL: Denies abdominal pain, nausea, vomiting, diarrhea. GENITOURINARY: Denies dysuria, hematuria, abnormal discharge SKIN: Denies rash or itching. Laceration to forehead in the hairline NEUROLOGIC: Denies numbness, or focal weakness. PSYCHIATRIC: Denies anxiety or depression. 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 COVID-19 Depression with anxiety Essential (primary) hypertension Fatigue Gastroesophageal reflux disease with esophagitis Grief reaction History of stress test Hx of adenomatous colonic polyps Hx of renal calculi Hx of renal cell cancer Hyperlipidemia Left flank pain Low back pain potentially associated with radiculopathy Major depressive disorder, single episode, unspecified Medication management Nonintractable headache Osteopenia after menopause Other insomnia Postmenopausal disorder Primary osteoarthritis of both hands Psoriasis Rotator cuff tear Skin tag History of Excision of (under both arms) Urinary Incontinence Vitamin D deficiency Vitamin D deficiency, unspecified Surgical History Surgical History History of coronary artery stent placement History of cryosurgery Cryoablation for removal of renal cancer History of hysterectomy (~1991) Family History Family History Sibling Patient's brother is in good health Family history of malignant neoplasm of kidney Father Cerebrovascular accident Family history of malignant neoplasm of kidney Patient's father is Mother Family history of chronic obstructive pulmonary disease Family history of lung cancer Patient's mother is Cerebrovascular accident Other Diabetes mellitus Family history of arthritis Family history of lupus erythematosus Family history of malignant neoplasm Hypertension Social History Social History Smoking status: Never smoker Second hand tobacco smoke exposure: No Alcohol intake: never Substance use: never Substance use type: does not use Comments At time of signature, I agree with nursing past medical, surgical, social and family history. There is no relevant family history
[2022-03-02] MEDS: TETANUS,DIPHTHERIA,AC PERTUSSIS ADULT (0.5 ML) BOOSTRIX IM (17:32)
[2022-03-02] MEDS: LIDOCAINE HCL 1% LOCAL INJ 2 ML AMPUL 3 ML INFILTRATE (17:34)
[2022-03-02] MEDS: ONDANSETRON HCL ODT 4 MG TABLET PO (17:34)
== END 2022-03-02 17:35 | disposition short-term general hospital (02) ==
PROVIDERS: Emergency Provider Nurse Practitioner; PCP Internal Medicine
DX: S09.90XA Unspecified injury of head, initial encounter (principal); S01.81XA Laceration without foreign body of other part of head, initial encounter; W22.8XXA Striking against or struck by other objects, initial encounter; Z23 Encounter for immunization; F41.9 Anxiety disorder, unspecified; Z86.16 Personal history of COVID-19; I10 Essential (primary) hypertension; K21.00 Gastro-esophageal reflux disease with esophagitis, without bleeding; E78.5 Hyperlipidemia, unspecified; M85.80 Other specified disorders of bone density and structure, unspecified site; L40.9 Psoriasis, unspecified; Z85.528 Personal history of other malignant neoplasm of kidney; E03.9 Hypothyroidism, unspecified
CPT/HCPCS: 12002; 90471; 90715; 99213; A9270; G0463

== ENCOUNTER 2022-03-02 17:58 | Emergency (ER) | payer MEDICARE, SELFPAY ==
--- NOTE | ~2022-03-02 | CT_ITS ---
EXAMINATION: CT brain wo con DATE: 03/02/2022 20:51 INDICATION: fall, syncope, HI . TECHNIQUE: Computed tomography (CT) of the head was performed without intravenous contrast. The mA wa s adjusted according to patient size. Iterative reconstruction technique was employed. The dose-lengt h product was 605.33 mGy-cm. COMPARISON: 12/28/2018 FINDINGS: No acute intracranial hemorrhage or extra-axial fluid collection. No hydrocephalus, mass, or herniation. No acute ischemic infarct. Unremarkable dural venous sinus attenuation. No acute osseous abnormality. Right frontal scalp contusion/laceration. The aerated spaces are clear. Mild atrophy and chronic white matter change. Atherosclerotic intracranial calcifications IMPRESSION: No acute intracranial process. Reviewed, dictated and finalized at location K.
--- NOTE | ~2022-03-02 | CT_ITS ---
EXAMINATION: CT cervical spine wo con DATE: 03/02/2022 20:55 INDICATION: fall, syncope, HI TECHNIQUE: Computed tomography (CT) of the cervical spine was performed without intravenous contrast. Automated exposure control and iterative reconstruction technique were employed. The dose-length pro duct was 217.52 mGy-cm. COMPARISON: 09/02/2017 FINDINGS: Vertebral Body Alignment: Intact. Craniocervical and atlantoaxial alignment: Moderate degenerative change. Alignment intact. Osseous structures/fracture: No evidence of a lytic or blastic process in the visualized spine. No e vidence of acute fracture. Cervical soft tissues: The paraspinal soft tissues planes are maintained. Mosaic attenuation in the l lashell apices, unchanged. Degenerative changes: Degenerative changes, without severe neural foraminal or central canal narrowin g. IMPRESSION: No acute fracture or traumatic malalignment in the cervical spine. Reviewed, dictated and finalized at location K.
[2022-03-02 18:27] VITALS: BP 128/75; PULSE 56; RESP 18; TEMP 36.4; O2SAT 100
--- NOTE | 2022-03-02 19:39 | ED.HEATRA ---
HPI - Head Injury General Chief complaint: Head Injury <ARI Clolazo Last Filed: 03/03/22 02:24> Stated complaint: Fall, Head Laceration <ARI Collazo Last Filed: 03/03/22 02:24> Time Seen by Provider: 03/02/22 19:36 <ARI Collazo Last Filed: 03/03/22 02:24> Source: patient and old records reviewed <ARI Collazo Last Filed: 03/03/22 02:24> Mode of arrival: ambulatory <ARI Collazo Last Filed: 03/03/22 02:24> Limitations: no limitations <ARI Collazo Last Filed: 03/03/22 02:24> History of Present Illness HPI Narrative: Patient is a 67-year-old female who presents to the ED with report of a head injury. Patient reports she is 8 days out from [employer]. She was fishing with her boyfriend today when she suddenly began to feel bad. She is unable to describe further what this means, but does report feeling hot, sweaty, nauseous, slightly dizzy. She walked over to a nearby pavilion and sat down. The next thing she remembered was waking up on the ground and reportedly having passed out. She did hit her head on the concrete and sustained a laceration to her forehead. She was seen at an urgent care after the incident where the laceration was repaired with stitches. Patient reported initial nausea after the incident, but denies any currently. COOLEY currently, but no weakness, dizziness, abdominal pain, chest pain, difficulty breathing, vision changes, numbness, tingling. <ARI Collazo Last Filed: 03/03/22 02:24> Related Data Home medications: Home Medications Medication Instructions Recorded Confirmed aspirin 81 mg tablet,delayed 81 mg PO DAILY 06/27/19 03/02/22 release (Aspir-) meclizine 25 mg tablet 25 mg PO DAILY 09/15/20 03/02/22 nitroglycerin 0.4 mg sublingual 0.4 mg sublingual Q5M PRN chest 10/13/20 03/02/22 tablet pain <Socorro Conner PA-C - Last Filed: 03/03/22 02:24> Allergies/Adverse reactions: Allergies Allergy/AdvReac Type Severity Reaction Status Date / Time ibuprofen Allergy Dyspnea / Verified 03/02/22 18:31 SOB iodine AdvReac Swelling Verified 03/02/22 18:31 of Lip/Tongue/Throat shellfish derived AdvReac Swelling Verified 03/02/22 18:31 of Lip/Tongue/Throat <Socorro Conner PA-C - Last Filed: 03/03/22 02:24> Review of Systems Review of Systems: CONSTITUTIONAL: Reports sweats. EYES: Denies visual changes. CARDIOVASCULAR: Denies chest pain. RESPIRATORY: Denies dyspnea. GASTROINTESTINAL: Reports nausea. Denies abdominal pain, vomiting, or diarrhea. MUSCULOSKELETAL: Denies back pain. NEUROLOGIC: Reports HI, syncope, COOLEY, dizziness. Denies tingling, numbness, or weakness. 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 COVID-19 Depression with anxiety Essential (primary) hypertension Fatigue Gastroesophageal reflux disease with esophagitis Grief reaction History of stress test Hx of adenomatous colonic polyps Hx of renal calculi Hx of renal cell cancer Hyperlipidemia Left flank pain Low back pain potentially associated with radiculopathy Major depressive disorder, single episode, unspecified Medication management Nonintractable headache Osteopenia after menopause Other insomnia Postmenopausal disorder Primary osteoarthritis of both hands Psoriasis Rotator cuff tear Skin tag History of Excision of (under both arms) Urinary Incontinence Vitamin D deficiency Vitamin D deficiency, unspecif
--- NOTE | 2022-03-02 20:17 | ECG_ITS ---
Measurements Intervals [place] Rate: 48 P: 19 VA: 164 QRS: -51 QRSD: 101 T: 12 QT: 454 QTc: 409 Interpretive Statements SINUS BRADYCARDIA LEFT ANTERIOR FASCICULAR BLOCK ABNORMAL ECG NO PREVIOUS ECG AVAILABLE FOR COMPARISON Electronically Signed On 03-03-2022 6:34:06 CDT by Francisco Matthews D.O.
[2022-03-02 20:37] VITALS: PULSE 89; RESP 16; O2SAT 98
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
[2022-03-02] MEDS: ACETAMINOPHEN 500 MG TABLET 1000 MG PO (22:12)
[2022-03-02 22:43] LABS: Alanine Aminotransferase 29 U/L (6-35); Albumin Level 4.4 g/dL (3.5-5.1); Alkaline Phosphatase 79 U/L (38-126); Anion Gap 9 mmol/L (8-16); Aspartate Amino Transferase 31 U/L (14-36); Bilirubin,Total 0.8 mg/dL (0.2-1.3); Blood Urea Nitrogen 31 mg/dL (7-17); Calcium 9.6 mg/dL (8.4-10.2); Carbon Dioxide 27 mmol/L (22-30); Chloride 105 mmol/L (98-107); Estimated CRCL calculation 43 ml/min; Estimated Glomerular Filt Rate > 60; Glucose 101 mg/dL (65-110); Potassium 4.4 mmol/L (3.4-5.0); Sodium 141 mmol/L (137-145)
[2022-03-02 22:54] LABS: Troponin I < 0.012 ng/mL (0.000-0.034)
[2022-03-02 23:10] VITALS: BP 172/104; PULSE 54
[2022-03-02 23:11] VITALS: BP 161/89; PULSE 59
[2022-03-02 23:13] VITALS: BP 160/81; PULSE 59
[2022-03-03 00:25] VITALS: BP 140/77; PULSE 78; RESP 16; O2SAT 98
== END 2022-03-03 00:27 | disposition home or self-care (01) ==
PROVIDERS: Physician Assistant; Emergency Provider Preventive Medicine Aerospace Medicine; PCP Internal Medicine
DX: S09.90XA Unspecified injury of head, initial encounter (principal); R55 Syncope and collapse; W18.39XA Other fall on same level, initial encounter; I10 Essential (primary) hypertension; E78.5 Hyperlipidemia, unspecified; K21.9 Gastro-esophageal reflux disease without esophagitis; F41.8 Other specified anxiety disorders; E55.9 Vitamin D deficiency, unspecified; L40.9 Psoriasis, unspecified; E03.9 Hypothyroidism, unspecified; Z95.5 Presence of coronary angioplasty implant and graft; Z79.82 Long term (current) use of aspirin; Z86.16 Personal history of COVID-19
CPT/HCPCS: 36415; 70450; 72125; 80053; 84484; 90471; 90715; 93005; 99284; A9270

== ENCOUNTER 2022-03-12 09:01 | Outpatient (CLI) | payer MEDICARE, SELFPAY ==
--- NOTE | 2022-03-15 14:14 | P.PCNHOL_ITS ---
Holter/Event Monitor Holter/Event Monitor Date of procedure: 03/15/22 Holter/Event Procedure: 24 Hr Holter Monitor Diagnosis: Syncope Indications: Syncope Image/Tracing Quality: Good quality Finding: The basic rhythm appears to be sinus with normal CA QRS and QT intervals. The heart rate varies from a minimum of 38 to a maximum of 92 with a mean rate of 59. The exam did not demonstrate any evidence of abnormal AV conduction or abrupt pauses. Minimum heart rate mentioned above was sinus bradycardia recorded at 2:58 a.m.. Supraventricular ectopic activity consists of rare PACs. Eight PACs were seen during the entire exam. There were no runs of S VT and there were no examples of atrial fibrillation. Ventricular ectopic activity was also rare 2 single PVCs were seen during the entire study. No symptom diary was returned for my review Conclusion: Essentially unremarkable 24 hour Holter exam demonstrating no cardiac arrhythmias which would explain syncope Ronen Estes MD [facility]
== END 2022-03-12 09:02 | disposition home or self-care (01) ==
PROVIDERS: PCP Internal Medicine; Visit Provider Internal Medicine
DX: R55 Syncope and collapse (principal)
CPT/HCPCS: 93225; 93226

== ENCOUNTER 2022-04-28 09:56 | Outpatient (CLI) | payer MEDICARE, SELFPAY ==
[2022-04-28 10:52] LABS: Basophils Percent Auto 0.3 % (0.2-1.2); Eosinophils Absolute Auto 0.2 K/mm3 (0-0.3); Eosinophils Percent Auto 2.4 % (0-4.4); Hematocrit 40.8 % (37.0-47.0); Hemoglobin 13.9 g/dL (12.0-15.0); Immature Granulocyte Absolute 0.02 K/mm3 (0.00-0.031); Immature Granulocyte Percent A 0.3 % (0-0.5); Lymphocytes Absolute Auto 1.68 K/mm3 (0.9-3.2); Lymphocytes Percent Auto 25.1 % (18.3-44.2); Mean Corpuscular HGB Conc 34.1 g/dl (32-36); Mean Corpuscular Hemoglobin 29.1 pg (26-34); Mean Corpuscular Volume 85.4 fl (80-100); Mean Platelet Volume 10.1 fl (7.4-10.4); Monocytes Absolute Auto 0.3 K/mm3 (0.1-0.6); Monocytes Percent Auto 4.5 % (2.6-8.5); Neutrophils Absolute Auto 4.5 K/mm3 (1.3-6.7); Neutrophils Percent Auto 67.4 % (45.5-73.1); Platelet Count Result 192 k/mm3 (150-375); Red Blood Count 4.78 M/mm3 (4.2-5.4); Red Cell Distribution Width 13.9 % (11.5-14.5); White Blood Count 6.7 K/mm3 (4.5-10.0)
== END 2022-04-28 09:57 | disposition home or self-care (01) ==
PROVIDERS: PCP Internal Medicine; Visit Provider Internal Medicine
DX: R42 Dizziness and giddiness (principal)
CPT/HCPCS: 36415; 85025

== ENCOUNTER 2022-05-12 10:46 | Outpatient (CLI) | payer MEDICARE, SELFPAY ==
[2022-05-12 12:14] LABS: Free T4 Free Thyroxine 1.57 ng/mL (0.78-2.19)
[2022-05-15 23:25] LABS: Vitamin D 1,25 (OH)2 Total 48 pg/mL (18-72); Vitamin D2 1,25 (OH)2 <8 pg/mL; Vitamin D3 1,25 (OH)2 48 pg/mL
== END 2022-05-12 10:47 | disposition home or self-care (01) ==
PROVIDERS: PCP Internal Medicine; Visit Provider Internal Medicine
DX: E55.9 Vitamin D deficiency, unspecified (principal); E03.9 Hypothyroidism, unspecified
CPT/HCPCS: 36415; 82652; 84439; 84443

== ENCOUNTER 2022-06-25 19:41 | Emergency (ER) | payer MEDICARE, SELFPAY | END 2022-06-25 20:18 | disposition left against medical advice (07) | PROVIDERS: Emergency Provider Internal Medicine Hematology & Oncology | DX: Z53.21 Procedure and treatment not carried out due to patient leaving prior to being seen by health care provider (principal) | CPT/HCPCS: 99199 ==

== ENCOUNTER 2022-08-12 10:35 | Outpatient (CLI) | payer MEDICARE, SELFPAY ==
--- NOTE | ~2022-08-12 | XR_ITS ---
[id number] 08/12/2022 10:54 Indication: Right knee pain Procedure: 2 views right knee Comparison: No prior studies for comparison. Findings: There is mild patellofemoral compartment osteoarthritis. No fracture, subluxation or disloc ation. No significant joint effusion. Impression: 1: Mild osteoarthritis of the patellofemoral compartment. Reviewed, dictated and finalized at location L. [employer] MA[employer] Impression: 1: Mild osteoarthritis of the patellofemoral compartment.
== END 2022-08-12 10:36 | disposition home or self-care (01) ==
PROVIDERS: PCP Internal Medicine; Visit Provider Nurse Practitioner
DX: M17.11 Unilateral primary osteoarthritis, right knee (principal)
CPT/HCPCS: 73560

== ENCOUNTER 2022-11-05 10:05 | Outpatient (CLI) | payer MEDICARE, SELFPAY ==
[2022-11-05 10:31] LABS: Basophils Percent Auto 0.5 % (0.2-1.2); Eosinophils Absolute Auto 0.2 K/mm3 (0-0.3); Eosinophils Percent Auto 2.5 % (0-4.4); Hematocrit 42.3 % (37.0-47.0); Hemoglobin 14.3 g/dL (12.0-15.0); Immature Granulocyte Absolute 0.03 K/mm3 (0.00-0.031); Immature Granulocyte Percent A 0.5 % (0-0.5); Lymphocytes Absolute Auto 1.48 K/mm3 (0.9-3.2); Lymphocytes Percent Auto 24.8 % (18.3-44.2); Mean Corpuscular HGB Conc 33.8 g/dl (32-36); Mean Corpuscular Hemoglobin 29.6 pg (26-34); Mean Corpuscular Volume 87.6 fl (80-100); Monocytes Absolute Auto 0.4 K/mm3 (0.1-0.6); Neutrophils Absolute Auto 3.9 K/mm3 (1.3-6.7); Neutrophils Percent Auto 65.7 % (45.5-73.1); Platelet Count Result 226 k/mm3 (150-375); Red Blood Count 4.83 M/mm3 (4.2-5.4)
[2022-11-05 10:50] LABS: Creatinine Urine 88.3 mg/dL
[2022-11-05 10:51] LABS: Alanine Aminotransferase 16 U/L (6-35); Albumin Level 4.2 g/dL (3.5-5.1); Alkaline Phosphatase 51 U/L (38-126); Anion Gap 11 mmol/L (8-16); Aspartate Amino Transferase 22 U/L (14-36); Bilirubin,Total 0.8 mg/dL (0.2-1.3); Blood Urea Nitrogen 21 mg/dL (7-17); Calcium 8.6 mg/dL (8.4-10.2); Carbon Dioxide 20 mmol/L (22-30); Chloride 109 mmol/L (98-107); Cholesterol 115 mg/dL (0-200); Estimated Glomerular Filt Rate > 60; Glucose 91 mg/dL (65-110); HDL Direct 42 mg/dL; Potassium 3.9 mmol/L (3.4-5.0); Sodium 140 mmol/L (137-145); Triglycerides 162 mg/dL (<150)
[2022-11-05 10:55] LABS: MALB Creatinine Ratio 11.2 mg/g (0-30); Microalbumin Urine Random 9.9 mg/L (0-16.7)
[2022-11-05 10:59] LABS: LDL Cholesterol Direct 54 mg/dL
[2022-11-05 11:10] LABS: Free T4 Free Thyroxine 1.52 ng/mL (0.78-2.19)
== END 2022-11-05 10:06 | disposition home or self-care (01) ==
PROVIDERS: PCP Family Medicine; Visit Provider Nurse Practitioner Family
DX: E03.9 Hypothyroidism, unspecified (principal); E78.5 Hyperlipidemia, unspecified; I10 Essential (primary) hypertension
CPT/HCPCS: 36415; 80053; 80061; 82043; 84439; 84443; 85025

== ENCOUNTER 2023-04-20 13:40 | Outpatient (CLI) | payer MEDICARE, SELFPAY ==
--- NOTE | ~2023-04-20 | XR_ITS ---
EXAM: XR hip LT 2V w AP pelvis DATE: 04/20/2023 14:26 HISTORY: W19.XXXA - Unspecified fall, initial encounter . COMPARISON: X-ray SI joints 08/07/2018. FINDINGS: Decreased mineralization. No fracture or dislocation. No lytic or blastic lesion. Mild deg enerative change in the SI joints, hips and pubic symphysis. Mild lower lumbar degenerative disc dise ase. Pelvic phleboliths. IMPRESSION: No acute osseous finding in the pelvis or left hip. Reviewed, dictated and finalized at location K.
--- NOTE | ~2023-04-20 | MR_ITS ---
EXAMINATION: MR lumbar spine wo con DATE: 04/20/2023 14:15 INDICATION: Lumbar radiculopathy TECHNIQUE: Magnetic resonance imaging (MRI) of the lumbar spine was performed without intravenous con trast. Sequences included sagittal T2-weighted FSE, sagittal T2-weighted FS FSE, sagittal T1-weighted FSE, and axial T2-weighted FSE. COMPARISON: 04/24/2020 FINDINGS: 2 mm retrolisthesis L1 on L2 and 1 mm retrolisthesis L2 on L3. Vertebral body heights are normal. No rmal marrow signal. Moderate disc height loss at L1-L2. Mild disc height loss at L2-L3. The conus med ullaris terminates at L1-L2. There is normal signal in the caudal spinal cord. Paravertebral soft tis sues are unremarkable. The following disc levels are specifically discussed: T12-L1: The disc does not extend beyond the endplate margin. There is mild bilateral facet joint oste oarthritis. There is no neural foraminal stenosis. There is no central canal stenosis. L1-L2: Disc is bulging with annular fissure. There is mild right and minimal left facet joint osteoar thritis. There is mild bilateral neural foraminal stenosis. There is mild central canal stenosis. L2-L3: Disc is bulging with superimposed annular fissure and unchanged right subarticular zone disc e xtrusion versus sequestered disc fragment measuring 9 mm medial to lateral, 4 mm AP and 9 mm cranioca udally located along the right inferior wall of the L2 vertebral body. There is mild right and minima l left facet joint osteoarthritis. There is mild bilateral neural foraminal stenosis. There is mild c entral canal stenosis and mild narrowing of the right lateral recess. L3-L4: Disc is bulging with annular fissure. There is mild bilateral facet joint osteoarthritis. Ther e is mild bilateral neural foraminal stenosis. There is mild central canal stenosis. L4-L5: Disc is mildly bulging. There is mild bilateral facet joint osteoarthritis. There is mild bila teral neural foraminal stenosis. There is no central canal stenosis. L5-S1: Disc is minimally bulging. There is mild right and minimal left facet joint osteoarthritis. Th ere is no neural foraminal stenosis. There is no central canal stenosis. IMPRESSION: 1. No significant change in moderate lumbar spondylosis. Reviewed, dictated and finalized at location A.
== END 2023-04-20 13:41 ==
LOC: MICIMG 13:41
PROVIDERS: PCP Nurse Practitioner Family; Visit Provider Nurse Practitioner Family
DX: M54.16 Radiculopathy, lumbar region (principal); W19.XXXA Unspecified fall, initial encounter
CPT/HCPCS: 72148; 73502

== ENCOUNTER 2023-05-18 13:29 | Outpatient (CLI) | payer MEDICARE, SELFPAY ==
[2023-05-18 14:49] LABS: Basophils Percent Auto 0.4 % (0.2-1.2); Eosinophils Absolute Auto 0.1 K/mm3 (0-0.3); Eosinophils Percent Auto 1.8 % (0-4.4); Hematocrit 41.9 % (37.0-47.0); Hemoglobin 13.6 g/dL (12.0-15.0); Immature Granulocyte Absolute 0.03 K/mm3 (0.00-0.031); Immature Granulocyte Percent A 0.4 % (0-0.5); Lymphocytes Absolute Auto 1.79 K/mm3 (0.9-3.2); Lymphocytes Percent Auto 25.5 % (18.3-44.2); Mean Corpuscular HGB Conc 32.5 g/dl (32-36); Mean Corpuscular Hemoglobin 28.5 pg (26-34); Mean Corpuscular Volume 87.7 fl (80-100); Mean Platelet Volume 10.5 fl (7.4-10.4); Monocytes Absolute Auto 0.4 K/mm3 (0.1-0.6); Monocytes Percent Auto 5.7 % (2.6-8.5); Neutrophils Absolute Auto 4.7 K/mm3 (1.3-6.7); Neutrophils Percent Auto 66.2 % (45.5-73.1); Platelet Count Result 210 k/mm3 (150-375); Red Blood Count 4.78 M/mm3 (4.2-5.4); Red Cell Distribution Width 14.2 % (11.5-14.5)
[2023-05-18 14:59] LABS: Alanine Aminotransferase 15 U/L (6-35); Albumin Level 4.2 g/dL (3.5-5.1); Alkaline Phosphatase 76 U/L (38-126); Anion Gap 9 mmol/L (8-16); Aspartate Amino Transferase 28 U/L (14-36); Bilirubin,Total 0.8 mg/dL (0.2-1.3); Blood Urea Nitrogen 32 mg/dL (7-17); Calcium 9.1 mg/dL (8.4-10.2); Carbon Dioxide 26 mmol/L (22-30); Chloride 107 mmol/L (98-107); Estimated Glomerular Filt Rate > 60; Glucose 95 mg/dL (65-110); Potassium 4.2 mmol/L (3.4-5.0); Sodium 142 mmol/L (137-145)
[2023-05-18 15:27] LABS: Thyroid Stimulating Hormone 0.528 uIU/mL (0.465-4.680)
== END 2023-05-18 13:30 | disposition home or self-care (01) ==
PROVIDERS: PCP Nurse Practitioner Family; Visit Provider Nurse Practitioner Family
DX: E03.9 Hypothyroidism, unspecified (principal); E78.5 Hyperlipidemia, unspecified; G89.29 Other chronic pain; I11.9 Hypertensive heart disease without heart failure; M25.561 Pain in right knee; Z00.00 Encounter for general adult medical examination without abnormal findings; I10 Essential (primary) hypertension
CPT/HCPCS: 36415; 80053; 84443; 85025

== ENCOUNTER 2024-05-16 10:58 | Outpatient (CLI) | payer MEDICARE, SELFPAY ==
--- NOTE | ~2024-05-16 | XR_ITS ---
XR hip RT 2V w AP pelvis 05/16/2024 11:13 Indication: Right hip pain Procedure: AP pelvis and 2 views right hip Comparison: 04/20/2023 Findings: Mild osteoarthritis of the right hip. Pelvic rings are intact. There is lower lumbar spondy losis. Osteopenia. No acute fracture or traumatic malalignment. Impression: 1: Mild osteoarthritis of the right hip. Reviewed, dictated and finalized at location B. 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
== END 2024-05-16 10:59 | disposition home or self-care (01) ==
PROVIDERS: PCP Family Medicine; Visit Provider Family Medicine
DX: M16.11 Unilateral primary osteoarthritis, right hip (principal)
CPT/HCPCS: 73502

== ENCOUNTER 2024-08-16 01:54 | Day surgery (SDC) | payer MEDICARE, SELFPAY ==
[2024-08-07 10:52] VITALS: BMI 24.3
--- OUTSIDE RECORDS SUMMARY | 2024-08-16 01:57 | XMS_ITS | Data Portability ---
Author Organization [place] [facility] [place] [facility], Main Office Address [address] [place] [address] Care Team Providers Care Health Technical Writer Name Role Phone CHEPE LINDQUIST Primary Care Provider CHEPE LINDQUIST Referring Provider Assessment Encounter Date Assessment Date Assessment LastModified by Organization Details LastModified Time 08/26/2022 08/26/2022 Patient returns knee pain right. She has catching locking and pain in the knee and waiting for an MRI scan. Because of her stent she has been in a bit to get 1 yet will see if we can obtain she can obtain which she is going to [place] to try. If this does not work may have to just continue consider surgical intervention consisting of knee arthroscopy. Her symptoms could persist despite conservative treatment I will see her back after the MRI is done discussed. [email or web address] Not available 08/26/2022 11:33:07 09/30/2022 09/30/2022 Patient presents knee pain right. She has an MRI scan that shows degenerative change but not an obvious meniscal tear. Her symptoms suggest meniscal pathology with mechanical-type catching. However based on the MRI scan I do not see it. I this point will continue with conservative treatment. I injected the right knee with 20 mg Kenalog 4 cc 1% lidocaine. For prescription drug management will try a prednisone taper again for pain and inflammation. I will see her back in a month to see how she is progressing. [email or web address] Not available 09/30/2022 10:20:53 11/04/2022 11/04/2022 Patient continues knee pain right. View of the fact she had a reaction to the injection we will avoid that for now. Recommend she continue with therapy will for prescription drug management will try a course of Voltaren for pain and inflammation. I will see her back in a month for follow-up if she does not continue to improve may have to consider MRI scan to rule out a meniscal tear. She does have some mechanical catching and locking. [email or web address] Not available 11/04/2022 12:28:40 Plan of Treatment Reminders Order Date Submit Date Provider Last Modified By Organization Details Last Modified Time Details Appointments None recorded. Lab None recorded. Referral physical therapist referral - please contact patient to schedule 2022 023 [facility] [place] [facility], [address], [place], [address], 13:10:33 Procedures injection/ aspiration joint/burs a (PROC) - in office procedure, administer ed by provider 2022 023 [email or web address] In-Office Order, Internal Use Only DO Not Attach Compendium DO Not Attach Compendium, Do Not Delete/merge, [id number] 10:09:34 Surgeries None recorded. Imaging None recorded. Medication Orders Kenalog 10 mg/mL suspension for injection 2022 023 [email or web address] [id number], [address], [place], [phone], 3 10:18:25 ropivacain e (PF) 5 mg/mL (0.5 %) injection solution 2022 023 [email or web address], [address], [place], [phone], 3 10:18:25 prednisone 10 mg tablets in a dose pack 2022 023 [email or web address], [address], [place], [phone], 3 10:18:25 Patient TargetsNo targets recorded. Patient InstructionsNo instructions recorded. Reason for Referral Physical Therapist Referral for Osteoarthritis of right knee joint please contact patient to schedule Referring Physician: Matt Meadows, Orthopedic Surgery, Encounter Date: 11/04/2022 Results Created Date Observation Date Name Description Value Unit Range Abnormal Flag Note LastModifiedBy Organization Detail LastModifiedTime 08/16/1908/12/2022 XR, knee, 1 or 2 view No observ ation record ed. [id number] Not Available 08/18/2022 10:51:42 10/01/1909/23/2022 MRI, knee, w/o contr ast No observ ation record ed. [email or web address] [address] [place], [address], 09/30/2022 10:56:35 10/01/19 MRI, knee, w/o contr ast No observ ation record ed. [email or web address] [facility] [address] [place], [address], 09/30/2022 15:24:57 Result Notes None recorded. Problems Name Problem SNOMED Code Status Onset Date Resolution Date Notes Provider Name and Address Organization Details Recorded Time Tear of medial meniscus of knee 851885818 Active 2022 Not Available [facility] 3 10:45:32 Pain of right knee joint 3371624978020 00 Active 2022 Not Available [facility] 3 10:45:32 Osteoarthr itis of right knee joint 6033486714484 00 Active 2022 Matt Meadows MD [address], [place] [address], [place], [address] , [facility] 3 10:21:01 Problem Notes None recorded. Procedures Surgical History Date Name Laterality Status Provider Name and Address Organization Details Recorded Time Ortho - Cortisone Injection completed Matt Meadows MD [address], [facility] [address], [place], [address], [facility] 09/30/2022 10:19:58 Imaging Results Imaging Date Name Status LastModified by Organiz ation Details LastModified Time 08/12/2022 XR, knee, 1 or 2 view completed [id number] Information not available 08/18/2022 10:51:42 09/23/2022 MRI, knee, w/o contrast completed [email or web address] [facility] [address] [place], [address], 09/30/2022 10:56:35 09/30/2022 MRI, knee, w/o contrast completed [email or web address] [facility] [address] [place], [address], 09/30/2022 15:24:57 Procedure Notes None recorded. Medical Equipment None Reported. Allergies Allergen ID Allergen Name Allergen Category Reaction Reaction Severity Criticality Documentation Date Start Date Code Code System Note Provider Name and Address Organization Details Recorded Time 16122 shellfish derived food,medi cation Not available Not available Not available 08/18/2022 18697 UNK Not Available [facility] 3 10:51:25 60593 iodine medicatio n Not available Not available Not available 08/18/2022 5933 RxNorm Not Available [facility] 3 10:51:25 86264 Product containin g penicilli n (product) medicatio n Not available Not available Not available 08/18/2022 66122 8001 SNOMED Not Available [facility] 3 10:51:25 Medications Name Sig Start Date Stop Date Status Note LastModified by Organization Details LastModified Time celecoxib 200 mg capsule TAKE 1 CAPSULE BY MOUTH EVERY DAY active Not Available Not Available No t Available prednisone 10 mg tablet active Not Available Not Available Not Available rabeprazole 20 mg tablet,fanny yed release TAKE 1 TABLET BY MOUTH DAILY active Not Available Not Available No t Available atorvastati n 10 mg tablet TAKE 1 TABLET BY MOUTH DAILY active Not Available Not Available No t Available tizanidine 4 mg tablet TAKE 1 TABLET BY MOUTH THREE TIMES DAILY NEEDED FOR MUSCLE SPASMS 08/16 completed Not Available Not Available Not Available lisinopril 20 mg tablet TAKE 1 TABLET BY MOUTH DAILY active Not Available Not Available No t Available clobetasol 0.05 % topical cream APPLY TOPICALLY TO THE AFFECTED AREA DAILY active Not Available Not Available No t Available amlodipine 5 mg tablet TAKE 1 TABLET BY MOUTH DAILY active Not Available Not Available No t Available prednisone 10 mg tablets in a dose pack Take 1 tab by mouth, 3 times a day for 3 daysTake 1 tab by mouth 2 times a day for 2 daysTake 1 tab by mouth once a day for 1 day 2022 active Not Available Not Available Not Avai lable levothyroxi ne 100 mcg tablet TAKE 1 TABLET BY MOUTH EVERY DAY active Not Available Not Available No t Available alprazolam 0.5 mg tablet TAKE 1 TABLET BY MOUTH TWICE DAILY AND 1 AND 1/2 TABLETS AT BEDTIME active Not Available Not Available No t Available Kenalog 10 mg/mL suspension for injection Take 20 mg by injection route. 2022 active [facility]: 0003- 0494- 20 Not Available Not Available Not Available hydrocodone 7.5 mg-acetamin ophen 325 mg tablet TAKE 1 TABLET BY MOUTH EVERY 6 HOURS NEEDED FOR PAIN active Not Available Not Available No t Available metoprolol succinate ER 25 mg tablet,exte nded release 24 hr 08/16 completed Not Available Not Available Not Available escitalopra m 10 mg tablet TAKE 1 TABLET BY MOUTH DAILY active Not Available Not Available No t Available metoprolol tartrate 25 mg tablet TAKE 1 TABLET BY MOUTH DAILY active Not Available Not Available No t Available aspirin 2022 active Not Available Not Available Not Avai lable levothyroxi ne 2022 active Not Available Not Available Not Avai lable amlodipine 2022 active Not Available Not Available Not Avai lable metoprolol succinate 2022 active Not Available Not Available Not Avai lable celecoxib 50 mg capsule TAKE 1 CAPSULE BY MOUTH TWICE DAILY active Not Available Not Available No t Available ropivacaine (PF) 5 mg/mL (0.5 %) injection solution Take 20 mg by injection route. 2022 active Not Available Not Available Not Avai lable BinaxNOW COVID-19 Ag Self Test kit Use as Directed on the Package 08/16 completed Not Available Not Available Not Available Vitals Date Recorded Body mass index (BMI) Body height Body weight Provider Name and Address Organization Details Last Updated DateTime 08/16/2022 24.8 kg/m2 160.02 cm 40351.93 g Not Available Brooklynn ealt 08/18/2022 10:44:07 Date Recorded Body height Body mass index (BMI) Body weight Provider Name and Address Organization Details Last Updated DateTime 08/26/2022 160.02 cm 24.8 kg/m2 22771.93 pily Oseguera Jag [facility] 08/26/2022 11:16:55 Date Recorded Body height Provider Name an d Address Organization Details Last Updated DateTime 09/30/2022 160.02 cm Liv Oseguera Jag [facility] 09/30/2022 09:48:36 Date Recorded Body height Body mass index (BMI) Body weight Provider Name and Address Organization Details Last Updated DateTime 11/04/2022 160.02 cm 24.8 kg/m2 17754.93 pily Chantel White, ATC L [facility] 11/04/2022 11:25:45 Social History Question Answer Notes LastModified by Organizat ion Details LastModified Time Tobacco Smoking Status Never Smoker Not Available [facility] 08/18/2022 10:41:54 What Is Your Level Of Alcohol Consumption? None [id number] Information not available 08/18/2022 Sex: Unknown Functional Status None recorded. Mental Status None recorded. Family History Nothing Reported. Medical History Condition Response ARTHRITIS Y KIDNEY STONES Y GOUT Y CANCER: SPECIFY Y CORONARY ARTERY DISEASE (CAD) Y Gynecological HistoryNo gynecological history recorded. Obstetrics History GPAL:G 0 P 0 0 0 0 Past Encounters Encounter ID Performer Location Encounter Start Date Encounter Closed Date Diagnosis/Indication Diagnosis SNOMED-CT Code Diagnosis ICD10 Code Diagnosis Note [id number] [facility] [address] [place] [address] 08/16/2022 00:00:00 08/16/2022 12:00:01 [id number] Matt Meadows MD [facility] [place] [address] [place] [address] 08/26/2022 11:14:24 08/26/2022 12:15:28 Pain of right knee joint 8452331372 17660 M25.561 Tear of me dial meniscus of knee 237091671 S83.241A [id number] Matt Meadows MD [facility] [place] [address] [place] [address] 09/30/2022 09:38:15 09/30/2022 10:35:23 Pain of right knee joint 0120827004 95127 M25.561 Tear of me dial meniscus of knee 100069935 S83.241A Osteoarthr itis of right knee joint 6865041468 52503 M17.11 [id number] Matt Meadows MD [facility] [place] [address] [place] [address] 11/04/2022 11:17:41 11/04/2022 11:45:56 Pain of right knee joint 0105762560 31829 M25.561 Osteoarthr itis of right knee joint 4365613757 09350 M17.11 Tear of me dial meniscus of knee 493221673 S83.241A Health Concerns Section Related Observation LastModified by Organization Detai ls LastModified Time None Recorded Concern Status LastModified by Organization Details LastModified Time None Recorded Advance Directives Directive None Recorded Payers Encounter Date Sequence Insurance Name Policy Number Policy Velarde Covered Member ID Velarde Member ID Guarantor Name 08/26/2022 1 [facility] (MEDICARE REPLACEMENT/A DVANTAGE - PPO) [id number] Makenna L Ligibel [id number] Makenna L Ligibel 09/30/2022 1 [facility] (MEDICARE REPLACEMENT/A DVANTAGE - PPO) [id number] Makenna L Ligibel [id number] Makenna L Ligibel 11/04/2022 1 [facility] (MEDICARE REPLACEMENT/A DVANTAGE - PPO) [id number] Makenna L Ligibel [id number] Makenna L Ligibel Notes Date Note Type Note Provider Name and Address Organization Details Recorded Time 08/16/2022 text/html KneeReported bypatient.Location :right; medial Quality:sharp; deep; occasional Severity:moderate Duration:continuou s since onset Timing:acute; abrupt Context:cannot identify Alleviating Factors:lying down; elevation; exercise; stretching Aggravating Factors:walking; lifting; carrying; twisting; bending/squatting Associated Symptoms:swelling; popping/clicking;b uckling Not Available [facility] [employer] 08/16/2022 12:00:01 08/26/2022 text/html Patient returns knee pain right. She has catching locking and pain in the knee and waiting for an MRI scan. Because of her stent she has been in a bit to get 1 yet will see if we can obtain she can obtain which she is going to [place] to try. She continues to have catching and locking and tenderness medially with mechanical-type symptoms. Matt Meadows MD [address], [place], [address], [employer] [facility] 08/26/2022 11:33:22 09/30/2022 text/html Patient returns knee pain right. Pain is localized primarily medially. Worse with activity somewhat relieved by rest. She claims she has mechanical symptoms. She presents with an MRI which does not show an obvious mensical teart. Matt Meadows MD [address], [place], [address], [employer] [facility] 09/30/2022 10:21:27 11/04/2022 text/html Patient returns knee pain right. She had a shot of cortisone she says the 1st helped and her knee locked up for several days and she had use a cane to get around. She does think that the prednisone pills helped however she remains symptomatic and continues to have pain in the right knee. Matt Meadows MD [address], [place], [address], [employer] [facility] 11/04/2022 12:28:54 OBGyn Episode No OBEpisode recorded.
[2024-08-16 12:15] VITALS: BP 127/79; PULSE 57; RESP 16; TEMP 36.1; O2SAT 99; BMI 24.3
[2024-08-16] MEDS: LACTATED RINGERS 1,000 ML 150 ML IV CONT (12:39)
[2024-08-16] MEDS: FAMOTIDINE 20 MG/2 ML VIAL IV PUSH (13:59)
[2024-08-16] MEDS: ONDANSETRON INJ 4 MG/2 ML VIAL IV PUSH (14:00)
--- NOTE | 2024-08-16 14:09 | SUR.PREOP ---
Patient stated to have nausea. was notified of patients symptom and did a verbal read-back order of famotidine and ondansetron. Order was put in and medications administered. Patient stated symptom subsided after administration.
--- NOTE | 2024-08-16 14:17 | PM.IMHP ---
H&P: HPI History of Present Illness Date/Time: 08/16/24 14:17 Chief Complaint: GERD- history of colon polyps Narrative: this patient underwent a Delgado fundoplication approximately 9 years ago, after which she did very well regarding chronic reflux. However, over the past 3 months approximately, she has been experiencing daily heartburn and regurgitation. There is no history of dysphagia, however he has lost about 8 lb in 3 months because her daily food intake has been decreased due to reflux. in addition, she has a history of colonic polyps and is due for her surveillance colonoscopy. Review of Systems Review of Systems: All systems reviewed & are unremarkable except as noted in HPI and below PMFSH Past Medical History Medical History (Updated 07/10/24 @ 12:52 by Brendon Bryant DO) Hx of adenomatous colonic polyps Loose stools intermediate designer use of drug COVID-19 Dental abscess Anxiety Contusion of right patella Skin tag History of Excision of (under both arms) History of stress test Rotator cuff tear Osteopenia after menopause Left flank pain Urinary Incontinence Fatigue Vitamin D deficiency, unspecified Postmenopausal disorder Low back pain potentially associated with radiculopathy Grief reaction Abdominal wall hernia Acquired hypothyroidism Carpal tunnel syndrome on both sides 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 Depression with anxiety Essential (primary) hypertension Gastroesophageal reflux disease with esophagitis Hx of adenomatous colonic polyps Hx of renal calculi Hx of renal cell cancer Hyperlipidemia Major depressive disorder, single episode, unspecified Medication management Nonintractable headache Other insomnia Primary osteoarthritis of both hands Psoriasis Vitamin D deficiency Surgical History Surgical History History of cryosurgery Cryoablation for removal of renal cancer History of hysterectomy (~1991) History of coronary artery stent placement Family History Family History Sibling Patient's brother is in good health Family history of malignant neoplasm of kidney Father Cerebrovascular accident Family history of malignant neoplasm of kidney Patient's father is Mother Family history of chronic obstructive pulmonary disease Family history of lung cancer Patient's mother is Cerebrovascular accident Other Diabetes mellitus Family history of arthritis Family history of lupus erythematosus Family history of malignant neoplasm Hypertension Social History Social History Smoking status: Never smoker Second hand tobacco smoke exposure: No Alcohol intake: never Substance use: never Substance use type: does not use Lack of Transportation: No Lack of Food: Never True Current Housing: I Have Housing Concerned About Future Housing: No Difficulty Paying Gas/Electric Bills: No Difficulty Paying for Meds: No Currently Unemployed: No Education: Trade/Vocational Certificate Difficulty w/ Childcare or Family Care: No Meds Home Medications and Allergies Home Medications ?Medication ?Instructions ?Recorded ?Confirmed ?Type aspirin 81 mg tablet,delayed 81 mg PO DAILY 06/27/19 08/16/24 History release (Aspir-) nitroglycerin 0.4 mg sublingual 0.4 mg sublingual Q5M PRN chest 04/07/23 08/07/24 Rx tablet pain #30 tabs lisinopril 20 mg tablet See Rx Instructions .Route 12/20/23 08/16/24 Rx .COMPLEX #90 tabs meclizine 25 mg tablet 25 mg PO BID PRN dizziness 02/16/24 08/07/24 History atorvastatin 10 mg tablet See Rx Instructions .Route 03/21/24 08/16/24 Rx .COMPLEX #90 tabs levothyroxine 100 mcg tablet See Rx Instructions .Route 03/21/24 08/16/24 Rx .COMPLEX #90 tabs rabeprazole 20 mg tablet,delayed 20 mg PO DAILY #90 tabs 03/21/24 08/16/24 Rx release (AcipHex) alprazolam 0.5 mg tablet 0.5 mg PO BID PRN anxiety 30 days 07/18/24 08/16/24 Rx #50 tabs clobetasol 0.05 % topical cream See Rx Instructions .Route 08/05/24 08/16/24 Rx .COMPLEX #30 grams celecoxib 200 mg capsule 200 mg PO DAILY 08/07/24 08/16/24 History metoprolol tartrate 25 mg tablet 25 mg PO BID 08/07/24 08/16/24 History pantoprazole 40 mg tablet,delayed 40 mg PO DAILY 08/07/24 08/16/24 History release Allergies Allergy/AdvReac Type Severity Reaction Status Date / Time ibuprofen Allergy Dyspnea / Verified 08/16/24 12:22 SOB iodine AdvReac Swelling Verified 08/16/24 12:22 of Lip/Tongue/Throat shellfish derived AdvReac Swelling Verified 08/16/24 12:22 of Lip/Tongue/Throat Vital Signs Vital Signs - 24 hr 08/16/24 12:15 Temperature 96.9 F L Pulse Rate 57 L Respiratory Rate 16 Blood Pressure 127/79 Pulse Oximetry 99 Oxygen Delivery Room Air Exam Const: General: cooperative and healthy appearing Resp: Effort & Inspection: normal respiratory effort and able to speak in complete sentences Auscultation: clear to auscultation bilaterally Cardio: Rate: regular rate Rhythm: regular rhythm GI: Inspection: normal to inspection GI Palp: No No hepatosplenomegaly present Auscultation: normal bowel sounds Rectal Exam: deferred Skin: General skin exam: normal color Psych: Appearance: grossly normal Mental Status: mental status grossly normal Assessment and Plan Assessment and plan (1) Hx of adenomatous colonic polyps: Code(s): Z86.010 - Personal history of colon polyps Status: Acute Assessment and Plan: The patient is deemed a good candidate for the procedures. Consent signed. Will proceed. (2) GERD (gastroesophageal reflux disease): Code(s): K21.9 - Gastro-esophageal reflux disease without esophagitis Status: Acute
--- NOTE | 2024-08-16 14:27 | WPDANESEPPF ---
Anes - Initial Pre Proc Eval Procedure: Operation Date: 08/16/24 13:00 Proposed Procedures p Esophagogastroduodenoscopy & Colonoscopy - Rogelio Oscar MD Date/Time: 08/16/24 14:27 Surgeon: Rogelio Oscar MD Pre Op Diagnosis: GERD,Other fecal abnoralities Patient Data Age: 69 Gender: F Height: 1.6 m Weight: 62.4 kg Last Vital Signs Temp 36.1 C L 08/16/24 12:15 Pulse 57 L 08/16/24 12:15 Resp 16 08/16/24 12:15 BP 127/79 08/16/24 12:15 Pulse Ox 99 08/16/24 12:15 O2 Del Method Room Air 08/16/24 12:15 Allergies Allergy/AdvReac Type Severity Reaction Status Date / Time ibuprofen Allergy Dyspnea / Verified 08/16/24 12:22 SOB iodine AdvReac Swelling Verified 08/16/24 12:22 of Lip/Tongue/Throat shellfish derived AdvReac Swelling Verified 08/16/24 12:22 of Lip/Tongue/Throat Home Medications ?Medication ?Instructions ?Recorded ?Confirmed ?Type aspirin 81 mg tablet,delayed 81 mg PO DAILY 06/27/19 08/16/24 History release (Aspir-) nitroglycerin 0.4 mg sublingual 0.4 mg sublingual Q5M PRN chest 04/07/23 08/07/24 Rx tablet pain #30 tabs lisinopril 20 mg tablet See Rx Instructions .Route 12/20/23 08/16/24 Rx .COMPLEX #90 tabs meclizine 25 mg tablet 25 mg PO BID PRN dizziness 02/16/24 08/07/24 History atorvastatin 10 mg tablet See Rx Instructions .Route 03/21/24 08/16/24 Rx .COMPLEX #90 tabs levothyroxine 100 mcg tablet See Rx Instructions .Route 03/21/24 08/16/24 Rx .COMPLEX #90 tabs rabeprazole 20 mg tablet,delayed 20 mg PO DAILY #90 tabs 03/21/24 08/16/24 Rx release (AcipHex) alprazolam 0.5 mg tablet 0.5 mg PO BID PRN anxiety 30 days 07/18/24 08/16/24 Rx #50 tabs clobetasol 0.05 % topical cream See Rx Instructions .Route 08/05/24 08/16/24 Rx .COMPLEX #30 grams celecoxib 200 mg capsule 200 mg PO DAILY 08/07/24 08/16/24 History metoprolol tartrate 25 mg tablet 25 mg PO BID 08/07/24 08/16/24 History pantoprazole 40 mg tablet,delayed 40 mg PO DAILY 08/07/24 08/16/24 History release Patient hx anesthesia problems: none Family hx anesthesia problems: none Results Review: All pre-operative results and documents have been reviewed as part of the pre-operative evaluation. 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 Depression with anxiety Essential (primary) hypertension Gastroesophageal reflux disease with esophagitis Hx of adenomatous colonic polyps Hx of renal calculi Hx of renal cell cancer Hyperlipidemia Major depressive disorder, single episode, unspecified Medication management Nonintractable headache Other insomnia Primary osteoarthritis of both hands Psoriasis Vitamin D deficiency Surgical History Surgical History History of cryosurgery Cryoablation for removal of renal cancer History of hysterectomy (~1991) History of coronary artery stent placement Family History Family History Sibling Patient's brother is in good health Family history of malignant neoplasm of kidney Father Cerebrovascular accident Family history of malignant neoplasm of kidney Patient's father is Mother Family history of chronic obstructive pulmonary disease Family history of lung cancer Patient's mother is Cerebrovascular accident Other Diabetes mellitus Family history of arthritis Family history of lupus erythematosus Family history of malignant neoplasm Hypertension Social History Social History Smoking status: Never smoker Second hand tobacco smoke exposure: No Alcohol intake: never Substance use: never Substance use type: does not use Lack of Transportation: No Lack of Food: Never True Current Housing: I Have Housing Concerned About Future Housing: No Difficulty Paying Gas/Electric Bills: No Difficulty Paying for Meds: No Currently Unemployed: No Education: Trade/Vocational Certificate Difficulty w/ Childcare or Family Care: No Anes - Eval Final PreProcedure Day of Procedure 08/16/24 14:27 Patient weight: obese Heart: regular rate and rhythm Lungs: clear to auscultation Airway: Mallampati scale class II Neurological: alert and oriented Last oral intake: >/= 8 hours ASA classification: III Emergent: no Anesthetic plan: proceed Anesthesia type and monitoring: general GIVS and standard monitoring Results Review: All pre-operative results and documents have been reviewed as part of the pre-operative evaluation. Informed Consent: The patient's anesthetic plan and its attendant risks and benefits were discussed with the patient/family/POA. Questions were solicited and answers provided to the satisfaction of the patient/family/POA.
--- NOTE | 2024-08-16 14:52 | SUR.OPER ---
EGD end 1442 COLONOSCOPY START 145
[2024-08-16 15:10] VITALS: BP 159/88; PULSE 69; RESP 22; O2SAT 100
[2024-08-16 15:20] VITALS: BP 154/89; PULSE 59; RESP 21; O2SAT 100
[2024-08-16 15:30] VITALS: BP 169/84; PULSE 65; RESP 18; O2SAT 100
== END 2024-08-16 16:00 | disposition home or self-care (01) ==
PROVIDERS: PCP Family Medicine; Referring Provider Family Medicine; Visit Provider Internal Medicine Gastroenterology
PROC: 0DJ08ZZ Inspection of Upper Intestinal Tract, Via Natural or Artificial Opening Endoscopic (ICD-10-PCS; CPT 45378; principal; 2024-08-16 13:00)
DX: Z12.11 Encounter for screening for malignant neoplasm of colon (principal); K63.5 Polyp of colon; K21.00 Gastro-esophageal reflux disease with esophagitis, without bleeding; K44.9 Diaphragmatic hernia without obstruction or gangrene; K31.7 Polyp of stomach and duodenum
CPT/HCPCS: 45385; 43239; 88305; J2003; J2405; J2704; J7120

== ENCOUNTER 2025-01-03 09:15 | Outpatient (CLI) | payer MEDICARE, SELFPAY ==
--- NOTE | ~2025-01-03 | MMUS_ITS ---
EXAMINATION: US breast LT limited, MM diagnostic valentine BI w nathalia HISTORY: Breast pain TECHNIQUE: Additional 3-D tomosynthesis images of the breasts were performed and synthetic 2-D images were generated. CAD analysis was submitted and interpreted. High resolution Limited left breast ultr asound was performed. COMPARISON: 04/20/2016 BREAST PARENCHYMAL COMPOSITION: Not dense: There are scattered areas of fibroglandular density. FINDINGS: MAMMOGRAPHIC FINDINGS: There are no suspicious masses, calcifications or architectural distortion in either breast to sugges t malignancy. ULTRASOUND: Limited left breast ultrasound: Normal heterogeneous echotexture without focal solid or cystic mass. IMPRESSION: 1. No evidence for malignancy in either breast. 2. Routine yearly screening mammogram and regular clinical breast examination are recommended. BI-RADS Category 1: Negative Reviewed, dictated and finalized at location B. IMPRESSION: 1. No evidence for malignancy in either breast. 2. Routine yearly screening mammogram and regular clinical breast examination a re recommended. BI-RADS Category 1: Negative
== END 2025-01-03 09:16 | disposition home or self-care (01) ==
LOC: MICIMG 09:16
PROVIDERS: PCP Family Medicine; Visit Provider Family Medicine
DX: N64.4 Mastodynia (principal)
CPT/HCPCS: 76642; 77062; 77066; G0279

== ENCOUNTER 2025-01-03 10:33 | Outpatient (CLI) | payer MEDICARE, SELFPAY ==
[2025-01-03 11:26] LABS: Hematocrit 41.5 % (37.0-47.0); Hemoglobin 13.9 g/dL (12.0-15.0); Immature Granulocyte Percent A 0.3 % (0-0.5); Lymphocytes Absolute Auto 1.68 K/mm3 (0.9-3.2); Mean Corpuscular HGB Conc 33.5 g/dl (32-36); Mean Corpuscular Hemoglobin 29.1 pg (26-34); Mean Corpuscular Volume 86.8 fl (80-100); Nucleated Red Blood Cells Absolute Auto 0.000 K/mm3 (0.0-0.012); Nucleated Red Blood Cells Perc 0.0 % (0.0-0.2); Platelet Count Result 195 k/mm3 (150-375); Red Blood Count 4.78 M/mm3 (4.2-5.4); White Blood Count 7.2 K/mm3 (4.5-10.0)
[2025-01-03 11:46] LABS: Alanine Aminotransferase 11 U/L (6-35); Albumin Level 4.1 g/dL (3.5-5.1); Alkaline Phosphatase 54 U/L (38-126); Anion Gap 8 mmol/L (4-12); Aspartate Amino Transferase 23 U/L (14-36); Bilirubin,Total 0.8 mg/dL (0.2-1.3); Blood Urea Nitrogen 21 mg/dL (7-17); Calcium 9.4 mg/dL (8.4-10.2); Carbon Dioxide 24 mmol/L (22-30); Chloride 109 mmol/L (98-107); Estimated Glomerular Filt Rate > 60; Glucose 91 mg/dL (65-110); Potassium 4.2 mmol/L (3.4-5.0); Sodium 141 mmol/L (137-145); Total Protein 6.9 g/dL (6.3-8.2)
[2025-01-03 11:55] LABS: Hemoglobin A1C 5.4 % (<5.7)
[2025-01-03 12:22] LABS: Thyroid Stimulating Hormone 1.160 uIU/mL (0.465-4.680)
== END 2025-01-03 10:34 | disposition home or self-care (01) ==
PROVIDERS: PCP Family Medicine; Visit Provider Family Medicine
DX: Z13.1 Encounter for screening for diabetes mellitus (principal); Z11.59 Encounter for screening for other viral diseases; R53.83 Other fatigue; R53.1 Weakness; E03.9 Hypothyroidism, unspecified
CPT/HCPCS: 36415; 80053; 83036; 84443; 85025; 86803

== ENCOUNTER 2025-02-27 11:34 | Emergency (ER) | payer MEDICARE, OTHER, SELFPAY ==
[2025-02-27 12:05] VITALS: BP 134/60; PULSE 55; RESP 18; TEMP 36.2; O2SAT 100
--- NOTE | 2025-02-27 12:20 | ED.EXTPRO ---
HPI - Extremity Problem General Chief complaint: Extremity Problem,Nontraumatic Stated complaint: right foot swelling Time Seen by Provider: 02/27/25 12:21 Source: patient Mode of arrival: ambulatory Limitations: no limitations History of Present Illness HPI Narrative: 70-year-old female presents with redness and swelling to right great toe following a pedicure. Patient reports that toe is painful. States that they were taking at an ingrown toenail during Pedicure. Concern for infection. Denies numbness tingling. All systems reviewed and negative except as noted above. Related Data Home Medications ?Medication ?Instructions ?Recorded ?Confirmed ?Last Taken ?Type aspirin 81 mg tablet,delayed 81 mg PO DAILY 06/27/19 01/31/25 08/15/24 History release (Aspir-) meclizine 25 mg tablet 25 mg PO BID PRN dizziness 02/16/24 01/31/25 Unknown History Held on 11/27/24. Instructions: .Provider Order tizanidine 4 mg capsule 4 mg PO QHS PRN 01/31/25 01/31/25 Unknown History Allergies Allergy/AdvReac Type Severity Reaction Status Date / Time ibuprofen Allergy Dyspnea / Verified 02/27/25 12:04 SOB iodine AdvReac Swelling Verified 02/27/25 12:04 of Lip/Tongue/Throat shellfish derived AdvReac Swelling Verified 02/27/25 12:04 of Lip/Tongue/Throat PMFSH Past Medical History Medical History (Updated 02/27/25 @ 12:30 by Aimee Barney NP) Hx of adenomatous colonic polyps Loose stools [facility] use of drug COVID-19 Dental abscess Anxiety Contusion of right patella Skin tag History of Excision of (under both arms) History of stress test Rotator cuff tear Osteopenia after menopause Left flank pain Urinary Incontinence Fatigue Vitamin D deficiency, unspecified Postmenopausal disorder Low back pain potentially associated with radiculopathy Grief reaction Abdominal wall hernia Acquired hypothyroidism Carpal tunnel syndrome on both sides 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 Depression with anxiety Essential (primary) hypertension Gastroesophageal reflux disease with esophagitis Hx of adenomatous colonic polyps Hx of renal calculi Hx of renal cell cancer Hyperlipidemia Major depressive disorder, single episode, unspecified Medication management Nonintractable headache Other insomnia Primary osteoarthritis of both hands Psoriasis Vitamin D deficiency Surgical History Surgical History History of cryosurgery Cryoablation for removal of renal cancer History of hysterectomy (~1991) History of coronary artery stent placement Family History Family History Sibling Patient's brother is in good health Family history of malignant neoplasm of kidney Father Cerebrovascular accident Family history of malignant neoplasm of kidney Patient's father is Mother Family history of chronic obstructive pulmonary disease Family history of lung cancer Patient's mother is Cerebrovascular accident Other Diabetes mellitus Family history of arthritis Family history of lupus erythematosus Family history of malignant neoplasm Hypertension Social History Social History Smoking status: Never smoker Second hand tobacco smoke exposure: No Alcohol intake: never Substance use: never Substance use type: does not use Do You Feel Safe in your Home?: Yes Lack of Transportation: No Lack of Food: Never True Current Housing: I Have Housing Concerned About Future Housing: No Difficulty Paying Gas/Electric Bills: No Difficulty Paying for Meds: No Currently Unemployed: No Education: Trade/Vocational Certificate Difficulty w/ Childcare or Family Care: No Living arrangements: with family Spiritual care concerns: No Comments At time of signature, agree with nursing past medical, surgical, social and family history. There is no relevant family history pertinent to the presenting complaint. Exam Narrative: GENERAL: This is a well-nourished, well-developed patient, in no apparent distress. HEAD: normocephalic, atraumatic. EYES: PERRL. Sclera clear/white. Vision is grossly intact. EARS: External ears normal NOSE: External nose normal NECK: Neck supple, non-tender without lymphadenopathy, masses or thyromegaly. CARDIOVASCULAR: Regular rate and rhythm without murmurs, gallops, or rubs. RESPIRATORY: Clear to auscultation. Breath sounds equal bilaterally. No wheezes, rales, or rhonchi. SKIN: warm, Dry, intact with no suspicious lesions or rash, good texture and turgor. Erythema swelling tenderness to right great toe. No fluctuance concerning for abscess. No drainage. NEURO: awake, alert, and oriented to person, place and time. There were no obvious focal neurologic abnormalities. EXTREMITIES: No joint tenderness, effusion, or edema noted. Course Course Level of Care: Express Care Visit Vital Signs Vital signs: Vital Signs Temperature 36.2 C L 02/27/25 12:05 Pulse Rate 55 L 02/27/25 12:05 Respiratory Rate 18 02/27/25 12:05 Blood Pressure 134/60 02/27/25 12:05 Pulse Oximetry 100 02/27/25 12:05 Oxygen Delivery Room Air 02/27/25 12:05 Temperature 36.2 C L 02/27/25 12:05 Pulse Rate 55 L 02/27/25 12:05 Respiratory Rate 18 02/27/25 12:05 Blood Pressure 134/60 02/27/25 12:05 Pulse Oximetry 100 02/27/25 12:05 Oxygen Delivery Room Air 02/27/25 12:05 Reviewed MDM - Extremity (Nontraumatic) MDM Narrative Medical decision making narrative: will treat cellulitis to right great toe with cephalexin. Range of motion and distal neurovascularly intact. Differential Diagnosis Differential diagnosis: Likely gout and cellulitis Discharge Plan Discharge Clinical Impression: Cellulitis of great toe of right foot Patient Disposition: Home Condition: Stable Instructions: Antibiotic Form, Cellulitis (ED) Additional Instructions: take antibiotic as prescribed until gone. Take Tylenol every 6-8 hours as needed for pain. Elevate when at rest. Follow-up with your primary care physician if symptoms are not improving. Patient Language: Marshallese Prescriptions: New cephalexin 500 mg capsule 500 mg PO QID 7 Days Qty: 28 0RF No Action aspirin [Aspir-81] 81 mg tablet,delayed release (DR/EC) 81 mg PO DAILY meclizine 25 mg tablet 25 mg PO BID PRN (Reason: dizziness) tizanidine 4 mg capsule 4 mg PO QHS PRN ciclopirox 0.77 % cream 1 applic topical BID 28 Days Qty: 30 1RF Rx Instructions: Apply to affected and surrounding area(s) twice daily until 1 week after clinical resolution. nitroglycerin 0.4 mg tablet, sublingual 0.4 mg sublingual Q5M PRN (Reason: chest pain) Qty: 30 0RF Rx Instructions: do not exceed 3 doses per episode levothyroxine 100 mcg tablet See Rx Instructions .ROUTE .COMPLEX Qty: 90 1RF Dose Instruction: TAKE ONE TABLET BY MOUTH ONCE DAILY Rx Instructions: TAKE ONE TABLET BY MOUTH ONCE DAILY atorvastatin 10 mg tablet See Rx Instructions .ROUTE .COMPLEX Qty: 90 0RF Dose Instruction: TAKE 1 TABLET BY MOUTH DAILY Rx Instructions: TAKE 1 TABLET BY MOUTH DAILY metoprolol tartrate 25 mg tablet 25 mg PO BID 90 Days Qty: 180 1RF lisinopril 20 mg tablet See Rx Instructions .ROUTE .COMPLEX Qty: 90 1RF Dose Instruction: TAKE ONE TABLET DAILY Rx Instructions: TAKE ONE TABLET DAILY celecoxib 200 mg capsule 200 mg PO DAILY Qty: 90 1RF clobetasol 0.05 % cream See Rx Instructions .ROUTE .COMPLEX Qty: 30 0RF Dose Instruction: APPLY TOPICALLY TO THE AFFECTED AREA DAILY Rx Instructions: APPLY TOPICALLY TO THE AFFECTED AREA DAILY pantoprazole 40 mg tablet,delayed release (DR/EC) See Rx Instructions .ROUTE .COMPLEX Qty: 90 0RF Dose Instruction: TAKE 1 TABLET BY MOUTH EVERY MORNING Rx Instructions: TAKE 1 TABLET BY MOUTH EVERY MORNING alprazolam [Xanax] 0.25 mg tablet 0.25 mg PO DAILY Qty: 20 0RF Follow-up/Referrals: Brendon Bryant DO [Primary Care Provider, Family Practice] Time of Disposition: 12:30
== END 2025-02-27 12:45 | disposition home or self-care (01) ==
PROVIDERS: Emergency Provider Nurse Practitioner Family; PCP Family Medicine
DX: L03.031 Cellulitis of right toe (principal); E03.9 Hypothyroidism, unspecified; I10 Essential (primary) hypertension; K21.00 Gastro-esophageal reflux disease with esophagitis, without bleeding; E78.5 Hyperlipidemia, unspecified; M19.042 Primary osteoarthritis, left hand; M19.041 Primary osteoarthritis, right hand; M85.80 Other specified disorders of bone density and structure, unspecified site; F41.9 Anxiety disorder, unspecified; Z79.82 Long term (current) use of aspirin; Z85.528 Personal history of other malignant neoplasm of kidney; Z95.5 Presence of coronary angioplasty implant and graft
CPT/HCPCS: 99213; G0463

== ENCOUNTER 2025-04-04 11:01 | Outpatient (CLI) | payer MEDICARE, OTHER, SELFPAY ==
[2025-04-04 11:57] LABS: Hematocrit 41.4 % (37.0-47.0); Hemoglobin 13.8 g/dL (12.0-15.0); Immature Granulocyte Percent A 0.4 % (0-0.5); Lymphocytes Absolute Auto 1.53 K/mm3 (0.9-3.2); Mean Corpuscular HGB Conc 33.3 g/dl (32-36); Mean Corpuscular Hemoglobin 28.9 pg (26-34); Mean Corpuscular Volume 86.6 fl (80-100); Nucleated Red Blood Cells Absolute Auto 0.000 K/mm3 (0.0-0.012); Nucleated Red Blood Cells Perc 0.0 % (0.0-0.2); Platelet Count Result 182 k/mm3 (150-375); Red Blood Count 4.78 M/mm3 (4.2-5.4); White Blood Count 7.2 K/mm3 (4.5-10.0)
[2025-04-04 12:24] LABS: Alanine Aminotransferase 12 U/L (6-35); Albumin Level 4.0 g/dL (3.5-5.1); Alkaline Phosphatase 60 U/L (38-126); Anion Gap 9 mmol/L (4-12); Aspartate Amino Transferase 20 U/L (14-36); Bilirubin,Total 1.0 mg/dL (0.2-1.3); Blood Urea Nitrogen 22 mg/dL (7-17); Calcium 9.1 mg/dL (8.4-10.2); Carbon Dioxide 21 mmol/L (22-30); Chloride 110 mmol/L (98-107); Cholesterol 94 mg/dL (0-200); Estimated Glomerular Filt Rate > 60; Glucose 85 mg/dL (65-110); HDL Direct 36 mg/dL; Potassium 3.9 mmol/L (3.4-5.0); Sodium 140 mmol/L (137-145); Total Protein 6.7 g/dL (6.3-8.2); Triglycerides 71 mg/dL (<150)
[2025-04-04 12:40] LABS: Free T4 Free Thyroxine 1.46 ng/dL (0.78-2.19)
[2025-04-04 12:45] LABS: Add Urine Microscopic? YES; Appearance Urine Clear (Clear); Glucose Urine UA Negative (Negative); Leukocyte Esterase Ur 2+ LEU/UL (Negative); Need Manual Microscopic Reviewed; Nitrate Urine Negative (Negative); Non Pathogenic Casts 0-2; Specific Grav Ur 1.020 (1.001-1.035)
[2025-04-04 12:56] LABS: Schistocytes None Seen
[2025-04-04 12:57] LABS: MALB Creatinine Ratio 8.3 mg/g (0-30)
[2025-04-04 13:00] LABS: Thyroid Stimulating Hormone 0.178 uIU/mL (0.465-4.680)
--- OUTSIDE RECORDS SUMMARY | 2025-04-04 13:10 | XMS_ITS | Encounter Summary ---
Author Organization [facility] Healthcare Address [address] [place] [address] Care Team Providers Care Neon Tube Bender Name Role Phone Jesus Cates MD Primary Care Provider [phone] Jaspal Mcknight DO Primary Care Provider [phone] Encounter Details Date Type Department Care Team (Late st Contact Info) Description 09/22/2017 Orders Only [facility] Health Information Management [address] [place] [id number] Scanning, Provider Social History Tobacco Use Types Packs/Day Years Used Date Smoking Tobacco: Never Smokeless Tobacco: Never Alcohol Use Standard Drinks/Week Comments No 0 (1 standard drink = 0.6 oz pur e alcohol) Comments Unknown Sex and Gender Information Value Date Recorded Sex Assigned at Not on file Legal Sex Female 11:12 AM DIRECTOR OF SPEECH PATHOLOGY Gender Identity Not on file Sexual Orientation Not on file documented as of this encounter Plan of Treatment Not on file documented as of this encounter Procedures Procedure Name Priority Date/Time Associated Diagnosis Comments CARDIOLOGY DOCUMENT SCAN 09/22/2017 documented in this encounter Results * Cardiology Document Scan (09/22/2017) Anatomical Region Laterality Modality Other us Provider Scanning CV CARDIAC SERVICES PROCEDURES Final Result documented in this encounter Visit Diagnoses Not on filedocumented in this encounter Care Teams Neon Tube Bender Relationship Specialty Start Date End Date Jesus Cates MD PCP - General 11/02/11 11/02/17 Jaspal Mcknight DO PCP - General Internal Medicine 11/03/17 documented as of this encounter
--- OUTSIDE RECORDS SUMMARY | 2025-04-04 13:10 | XMS_ITS | Clinical Summary ---
Author Organization [facility] [address] Address [address] [place] [address] Care Team Providers Care Autobody Technician Name Role Phone Jaspal Mcknight DO Primary Care Provider [phone] Allergies Active Allergy Reactions Criticality Noted Date Comments Adhesive Tape-Silicones Rash Medium Ibuprofen Shortness of breath High Iodine Shortness of breath High Iodine And Iodide Containing Products Swelling Medium Metrizamide Shortness of breath,Swelling High 08/14/2015 Morphine Nausea Only,Vomiting,Nausea only High 08/14/2015 Oxycodone Pollen Extracts Other (See comments) Low Reaction: OTHER REACTION, Shellfish Containing Products Shortness of breath High Medications aspirin (ASPIRIN LOW DOSE) 81 mg tablet take 1 tablet (81MG) by oral route every day 0 06/27/19 13 Active levothyroxine (SYNTHROID) 100 mcg tablet take 1 tablet by oral route every day 0 09/21/19 12 Active clobetasol (TEMOVATE) 0.05 % cream Apply topically daily Active meclizine (ANTIVERT) 25 mg tablet Take 25 mg by mouth daily Active atorvastatin (LIPITOR) 10 mg tabletIndications:Co ronary arteriosclerosis in [place] artery Take 1 tablet (10 mg total) by mouth daily. 30 tablet 11 03/01/20 17 Active lisinopril (PRINIVIL,ZESTRIL) 20 mg tablet Take 1 tablet (20 mg total) by mouth daily. 30 tablet 11 03/10/[address] (ACIPHEX) 20 mg EC tablet Take 1 tablet (20 mg total) by mouth daily Active ALPRAZolam (XANAX) 0.25 mg tablet Take 2 tablets (0.5 mg total) by mouth 0.5mg orally One po BID and one and one half at HS Active traMADoL (ULTRAM) 50 mg tablet Take 50 mg by mouth every 8 (eight) hours as needed for pain Active escitalopram (LEXAPRO) 10 mg tablet 5 mg daily 09/16/19 21 Active metoprolol XL (TOPROL-XL) 25 mg extended release tablet Take 1 tablet (25 mg total) by mouth daily 90 tablet 3 03/02/[address] (CYMBALTA) 30 mg capsule 05/19/20 23 Active tiZANidine (ZANAFLEX) 4 mg tablet Take 1 tablet (4 mg total) by mouth 3 (three) times a day as needed 03/20/20 23 Active amLODIPine (NORVASC) 5 mg tablet Take 1 tablet (5 mg total) by mouth daily Active celecoxib (CeleBREX) 200 mg capsule Take 1 capsule (200 mg total) by mouth daily Active HYDROcodone-acetamin ophen (NORCO) 7.5-325 mg per tablet Take by mouth every 6 (six) hours as needed Active nitroglycerin (NITROSTAT) 0.4 mg SL tabletIndications:At herosclerosis of com[place] coronary artery of com[place] heart with stable angina pectoris Place 1 tablet (0.4 mg total) under the tongue every 5 (five) minutes as needed for chest pain 25 tablet 3 05/20/20 23 Active Active Problems Problem Noted Date Diagnosed Date Mixed hyperlipidemia 05/20/2023 Bradycardia 05/20/2023 S/P coronary artery stent placement 11/03/2017 Coronary vasospasm 03/01/2017 Presence of stent in coronary artery 03/01/2017 Anxiety 12/08/2015 Overview (09/23/2016): Anxiety Ascending aortic aneurysm 12/08/2015 Overview (09/23/2016): Ascending aortic aneurysm Hypertensive heart disease without congestive he art failure 10/14/2015 Overview (09/24/2016): Hypertensive heart disease without heart failure 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 05/26/2015 Overview (09/24/2016): Coronary artery disease involving comanche coronary artery of com[place] heart with other form of angina pectoris Dyslipidemia 05/26/2015 Overview (09/24/2016): Dyslipidemia History of placement of stent for coronary arter y disease 05/26/2015 Overview (09/24/2016): S/P coronary artery stent placement [place] IV diagnosis 05/26/2015 Overview (09/24/2016): Psychosocial stressors Benign hypertension 05/26/2015 Overview (09/24/2016): HTN (hypertension), benign Hypothyroidism 05/26/2015 Overview (09/24/2016): Hypothyroidism, unspecified type Pure hypercholesterolemia 08/13/2014 Overview (09/24/2016): Pure hypercholesterolemia Resolved Problems Problem Noted Date Diagnosed Date Resolved Date Benign essential hypertension 08/13/2014 05/20/2023 Overview (09/24/2016): Benign essential hypertension Encounters Date Type Department Care Team Description 03/13/2025 Telephone [facility] Cardiology [address] [place] [address] Steven Sidhu MD from Last 3 Months Surgical History Surgery Date Site/Laterality Comments HIATAL HERNIA REPAIR Hiatal Hernia Repair HYSTERECTOMY Hysterectomy SECTION Caesarean Section Medical History Medical History Date Comments Hx Other Medical Kidney Stones - cryo-ablation Hx Other Medical Left Renal Cell Carcinoma Hypothyroidism Hypothyroidism Hx Other Medical Hiatal Hernia Hx Other Medical Psychosocial st ressors Family History Medical History Relation Name Comments Heart attack Father 2 Myocardial Infa rction; Cause of : Myocardial Infarction Lung cancer Mother 2 Cancer, lung; C ause of : Cancer, lung Relation Name Status Comments Father 1 (Age 85) Father 2 Mother 1 (Age 74) Mother 2 Social History Tobacco Use Types Packs/Day Years Used Date Smoking Tobacco: Never Smokeless Tobacco: Never Alcohol Use Standard Drinks/Week Comments No 0 (1 standard drink = 0.6 oz pur e alcohol) Comments Unknown Sex and Gender Information Value Date Recorded Sex Assigned at Not on file Legal Sex Female 11:12 AM [employer] Gender Identity Not on file Sexual Orientation Not on file Obstetrics History Last Filed Vital Signs Vital Sign Reading Time Taken Comments Blood Pressure 112/76 05/20/2023 10:25 AM [employer] Pulse 57 05/20/2023 10:25 AM [employer] Temperature - - Respiratory Rate - - Oxygen Saturation 97% 05/20/2023 10:25 AM [employer] Inhaled Oxygen Concentration - - Weight 66.3 kg (146 lb 1.6 oz) 05/20/2023 10:25 AM [employer] Height 160 cm (5' 3) 05/20/2023 10:25 AM [employer] Body Mass Index 25.88 05/20/2023 10:25 AM [employer] Plan of Treatment Health Maintenance Due Date Last Done Comments Breast Cancer Screening-Mammogram 1953 Colon Cancer Screening-Colonoscopy 1955 Depression Screening 1955 Fall Risk Assessment 1955 Hepatitis C Screening 1955 Osteoporosis Screening-Bone Density Scan 1953 DTaP/Tdap/Td Vaccine (1 - Tdap) 01/11/1964 Hepatitis B Screening 1971 Zoster Vaccine (1 of 2) 2003 Well Visit 65+ 2018 Pneumococcal vaccine 65+ (2 of 2 - PPSV23, PCV20, or PCV21) 05/02/2018 03/07/2018 Covid-19 Vaccine (2 - season) 02/18/202501/2021 Influenza Vaccine (#1) 2025 9, 03/07/2018, 05/05/2015 Insurance UHC MEDICARE ADVANTAGE [employer] MEDICARE ADVANTAGE Care Teams Autobody Technician Relationship Specialty Start Date End Date Jaspal Mcknight DO PCP - General Internal Medicine 11/03/17
[2025-04-04 22:01] LABS: Hemoglobin A1C 5.1 % (<5.7)
== END 2025-04-04 11:02 | disposition home or self-care (01) ==
PROVIDERS: PCP Family Medicine
DX: D48.5 Neoplasm of uncertain behavior of skin (principal); F41.1 Generalized anxiety disorder; F32.A Depression, unspecified; M54.59 Other low back pain; M25.561 Pain in right knee; M54.31 Sciatica, right side; M25.551 Pain in right hip; I10 Essential (primary) hypertension; E03.9 Hypothyroidism, unspecified; K21.9 Gastro-esophageal reflux disease without esophagitis; E78.5 Hyperlipidemia, unspecified; I25.84 Coronary atherosclerosis due to calcified coronary lesion; C64.2 Malignant neoplasm of left kidney, except renal pelvis; R23.4 Changes in skin texture; R11.11 Vomiting without nausea
CPT/HCPCS: 36415; 80053; 80061; 81001; 82043; 82306; 83036; 84100; 84439; 84443; 85025; 87086

== ENCOUNTER 2025-05-08 20:58 | Emergency (ER) | payer MEDICARE, OTHER, SELFPAY ==
--- NOTE | ~2025-05-08 | XR_ITS ---
EXAMINATION: XR shoulder RT min 2V DATE: 05/08/2025 21:16 INDICATION: Trauma. TECHNIQUE: 4 views of the right shoulder were obtained. COMPARISON: None. FINDINGS: Bones are osteopenic. No acute fracture or dislocation is seen. Soft tissues are unremarkable. IMPRESSION: 1. No acute bony lesions of the right shoulder. Osteopenic bones. Reviewed, dictated and finalized at location T. E HOLDER
--- NOTE | ~2025-05-08 | XR_ITS ---
EXAMINATION: XR elbow RT 2V DATE: 05/08/2025 21:16 INDICATION: Trauma. TECHNIQUE: 3 views of the right elbow were obtained. COMPARISON: None. FINDINGS: No acute fracture or dislocation are seen. Calcific tendinitis on the radial aspect of the elbow is noted. No evidence of effusion. IMPRESSION: 1. No acute fracture. 2. Calcific tendinitis of the common extensor tendon on the radial aspect of the elbow. Reviewed, dictated and finalized at location T. CYLINDER INSPECTOR IMPRESSION: 1. No acute fracture. 2. Calcific tendinitis of the common extensor tendon on the radial aspect of th e elbow.
[2025-05-08 21:02] VITALS: BP 163/90; PULSE 60; RESP 16; TEMP 36.7; O2SAT 100
--- NOTE | 2025-05-08 22:43 | ED_ITS ---
HPI - Fall General Chief Complaint: Fall Stated Complaint: fall, shoulder injury Time Seen by Provider: 05/08/25 22:22 Source: patient Mode of arrival: ambulatory Limitations: no limitations History of Present Illness HPI Narrative: This is a 70-year-old female who presents to the ED for follow-up. Patient states that she was at the [employer] when she bumped into by someone and hit the [place]alyn textured wall causing her to slide down against the wall and have a skin tear to her right forearm and injure her right shoulder. She has difficulty moving her shoulder at this time prompting her to come to the ED. Denies hitting head, loss consciousness. Her last tetanus was 2 years ago. Related Data Home Medications ?Medication ?Instructions ?Recorded ?Confirmed ?Last Taken ?Type aspirin 81 mg tablet,delayed 81 mg PO DAILY 06/27/19 0 03/13/25 08/15/24 History release (Aspir-) Allergies Allergy/AdvReac Type Severity Reaction Status Date / Time ibuprofen Allergy Dyspnea / Verified 03/13/25 10:27 SOB iodine AdvReac Swelling Verified 03/13/25 10:27 of Lip/Tongue/Throat shellfish derived AdvReac Swelling Verified 03/13/25 10:27 of Lip/Tongue/Throat Review of Systems Review of Systems: Gen.: Denies fevers or chills Eyes: Denies eye pain or visual change ENT: Denies congestion Respiratory: Denies shortness of breath or cough CV: Denies chest pain or palpitations GI: Denies abdominal pain nausea, emesis or diarrhea denies burning, urgency, frequency or hematuria Musculoskeletal: As per HPI Neuro: Denies numbness, tingling, weakness or focal weakness Skin: As per HPI Except as documented, all other systems reviewed and negative [facility] Past Medical History Medical History Hx of adenomatous colonic polyps Loose stools 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 COVID-19 Dental abscess Anxiety Contusion of right patella Skin tag History of Excision of (under both arms) History of stress test Rotator cuff tear Osteopenia after menopause Left flank pain Urinary Incontinence Fatigue Vitamin D deficiency, unspecified Postmenopausal disorder Low back pain potentially associated with radiculopathy Grief reaction Abdominal wall hernia Acquired hypothyroidism Carpal tunnel syndrome on both sides 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 Depression with anxiety Essential (primary) hypertension Gastroesophageal reflux disease with esophagitis Hx of adenomatous colonic polyps Hx of renal calculi Hx of renal cell cancer Hyperlipidemia Major depressive disorder, single episode, unspecified Medication management Nonintractable headache Other insomnia Primary osteoarthritis of both hands Psoriasis Vitamin D deficiency Surgical History Surgical History History of cryosurgery Cryoablation for removal of renal cancer History of hysterectomy (~1991) History of coronary artery stent placement Family History Family History Sibling Patient's brother is in good health Family history of malignant neoplasm of kidney Father Cerebrovascular accident Family history of malignant neoplasm of kidney Patient's father is Mother Family history of chronic obstructive pulmonary disease Family history of lung cancer Patient's mother is Cerebrovascular accident Other Diabetes mellitus Family history of arthritis Family history of lupus erythematosus Family history of malignant neoplasm Hypertension Social History Social History Smoking status: Never smoker Second hand tobacco smoke exposure: No Alcohol intake: never Substance use: never Substance use type: does not use Do You Feel Safe in your Home?: Yes Lack of Transportation: No Lack of Food: Never True Current Housing: I Have Housing Concerned About Future Housing: No Difficulty Paying Gas/Electric Bills: No Difficulty Paying for Meds: No Currently Unemployed: No Education: Trade/Vocational Certificate Difficulty w/ Childcare or Family Care: No Living arrangements: with family Spiritual care concerns: No Exam Narrative: APPEARANCE: No acute distress, nontoxic, resting in bed HEENT: Normocephalic, atraumatic, OMM RESPIRATORY: No respiratory distress CARDIOVASCULAR: Appears well perfused ABDOMINAL: Nondistended MUSCULOSKELETAL: Moves all extremities. Tenderness over the right glenohumeral joint, neurovascular intact distally. NEURO: Awake and alert. SKIN:: Warm, dry. Skin tear to the right forearm, bleeding controlled PSYCHIATRIC: Normal affect/mood, Course Vital Signs Vital signs: Vital Signs Temperature 98.1 F 05/08/25 21:02 Pulse Rate 60 05/08/25 21:02 Respiratory Rate 16 05/08/25 21:02 Blood Pressure 163/90 H 05/08/25 21:02 Pulse Oximetry 100 05/08/25 21:02 Oxygen Delivery Room Air 05/08/25 21:02 Temperature 98.1 F 05/08/25 21:02 Pulse Rate 75 05/08/25 23:58 Respiratory Rate 18 05/08/25 23:58 Blood Pressure 124/86 05/08/25 23:58 Pulse Oximetry 100 05/08/25 23:58 Oxygen Delivery Room Air 05/08/25 21:02 MDM - Fall MDM Narrative Medical decision making narrative: 70-year-old female Presenting for a fall and shoulder pain. On initial evaluation patient was in no acute distress afebrile, hemodynamic stable. Differentials include but are not limited to: Fracture, sprain, strain, contusion, abrasion, laceration, skin tear Notable exam findings: Skin tear of the right forearm, tenderness over the right glenohumeral joint I personally reviewed the patient's images and interpret as follows: X-ray right elbow: No acute fractures. X-ray right shoulder: No acute fractures Patient was up-to-date on Tdap. Skin tear was dressed. Patient was placed in a sling for comfort. She was educated on proper range of motion exercises during her injury to prevent frozen shoulder. She was educated on Tylenol and ibuprofen use. She was advised follow-up with her PCP in the next week for re- evaluation. Patient was agreeable to this plan. Given strict return precautions. Imaging Data Radiologist's impression: Impressions Shoulder X-Ray 05/08/25 21:17 IMPRESSION: 1. No acute bony lesions of the right shoulder. Osteopenic bones. Elbow X-Ray 05/08/25 21:18 IMPRESSION: 1. No acute fracture. 2. Calcific tendinitis of the common extensor tendon on the radial aspect of the elbow. Discharge Plan Discharge Clinical Impression: Fall, Shoulder sprain, Skin tear Patient Disposition: Home Condition: Stable Instructions: Antibiotic Form, Skin Tear (ED) Additional Instructions: Keep your right shoulder in a sling but be sure to do [id number] exercises. Follow-up with your PCP in the next week for re-evaluation. Return to the ED for any new or worsening symptoms. For pain, discomfort or temperature greater than or equal to 100.8 ?F please alternate the following 2 medications as needed. First medication- acetaminophen/Tylenol- 1000mg every 6-8 hours as needed for above indications. Second medication- ibuprofen/Motrin-600mg every 6-8 hours as needed for above indication. Patient Language: Mongolian Prescriptions: No Action aspirin [Aspir-81] 81 mg tablet,delayed release (DR/EC) 81 mg PO DAILY ciclopirox 0.77 % cream 1 applic topical BID 28 Days Qty: 30 1RF Rx Instructions: Apply to affected and surrounding area(s) twice daily until 1 week after clinical resolution. sertraline 50 mg tablet 50 mg PO DAILY Qty: 30 1RF nitroglycerin 0.4 mg tablet, sublingual 0.4 mg sublingual Q5M PRN (Reason: chest pain) Qty: 30 0RF Rx Instructions: do not exceed 3 doses per episode metoprolol tartrate 25 mg tablet 25 mg PO BID 90 Days Qty: 180 1RF lisinopril 20 mg tablet See Rx Instructions .ROUTE .COMPLEX Qty: 90 1RF Dose Instruction: TAKE ONE TABLET DAILY Rx Instructions: TAKE ONE TABLET DAILY celecoxib 200 mg capsule 200 mg PO DAILY Qty: 90 1RF pantoprazole 40 mg tablet,delayed release (DR/EC) See Rx Instructions .ROUTE .COMPLEX Qty: 90 0RF Dose Instruction: TAKE 1 TABLET BY MOUTH EVERY MORNING Rx Instructions: TAKE 1 TABLET BY MOUTH EVERY MORNING atorvastatin 10 mg tablet See Rx Instructions .ROUTE .COMPLEX Qty: 90 0RF Dose Instruction: TAKE 1 TABLET BY MOUTH DAILY Rx Instructions: TAKE 1 TABLET BY MOUTH DAILY alprazolam [Xanax] 0.25 mg tablet 0.25 mg PO DAILY Qty: 20 0RF levothyroxine 100 mcg tablet See Rx Instructions .ROUTE .COMPLEX Qty: 90 1RF Dose Instruction: TAKE ONE TABLET BY MOUTH ONCE DAILY Rx Instructions: TAKE ONE TABLET BY MOUTH ONCE DAILY Follow-up/Referrals: Brendon Bryant DO [Physician, Family Practice]
[2025-05-08 23:58] VITALS: BP 124/86; PULSE 75; RESP 18; O2SAT 100
--- OUTSIDE RECORDS SUMMARY | 2025-05-09 01:56 | XMS_ITS | Encounter Summary ---
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
--- OUTSIDE RECORDS SUMMARY | 2025-05-09 01:56 | XMS_ITS | Clinical Summary ---
Author Organization [facility] [address] Address [address] [place] [address] Care Team Providers Care Manager Business Process Name Role Phone Jaspal Mcknight DO Primary Care Provider [phone] Allergies Active Allergy Reactions Criticality Noted Date [...] (LIPITOR) 10 mg tabletIndications:Co ronary arteriosclerosis in kaw artery Take 1 tablet (10 mg total) [...] (NITROSTAT) 0.4 mg SL tabletIndications:At herosclerosis of kaw coronary artery of kaw heart with stable angina pectoris Place 1 [...] artery disease of n ative artery of kaw heart with stable angina pectoris 05/26/2015 Overview (09/24/2016): Coronary artery disease involving kaw coronary artery of kaw heart with other form of angina pectoris Dyslipidemia 05/26/2015 Overview (09/24/2016): Dyslipidemia History of placement of stent for coronary arter y disease 05/26/2015 Overview (09/24/2016): S/P coronary artery stent placement [place] IV diagnosis 05/26/2015 Overview (09/24/2016): Psychosocial stressors Benign hypertension 05/26/2015 Overview (09/24/2016): HTN (hypertension), benign Hypothyroidism 05/26/2015 Overview (09/24/2016): Hypothyroidism, unspecified type Pure hypercholesterolemia 08/13/2014 Overview (09/24/2016): Pure hypercholesterolemia Resolved Problems Problem Noted Date Diagnosed Date Resolved Date Benign essential hypertension 08/13/2014 05/20/2023 Overview (09/24/2016): Benign essential hypertension Encounters Date Type Department Care Team Description 03/13/2025 Telephone [facility] Cardiology [address] [place] [address] Steven Sidhu MD from Last [...] on file Legal Sex Female 11:12 AM [employer]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 Gender Identity Not on file Sexual Orientation Not on file Last Filed Vital Signs Vital Sign Reading Time Taken Comments Blood Pressure 112/76 05/20/2023 10:25 AM PI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 Pulse 57 05/20/2023 10:25 AM PI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 Temperature - - Respiratory Rate - - Oxygen Saturation 97% 05/20/2023 10:25 AM PI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 Inhaled Oxygen Concentration - - Weight 66.3 kg (146 lb 1.6 oz) 05/20/2023 10:25 AM 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 Height 160 cm (5' 3) 05/20/2023 10:25 AM PI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 Body Mass Index 25.88 05/20/2023 10:25 AM PI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 Plan of Treatment Health Maintenance Due Date [...] Vaccine (#1) 2025 9, 03/07/2018, 05/05/2015 Insurance [facility] MEDICARE ADVANTAGE [employer] MEDICARE ADVANTAGE Care Teams Manager Business Process Relationship Specialty Start Date End Date Jaspal Mcknight DO PCP - General Internal Medicine 11/03/17
== END 2025-05-08 23:59 | disposition home or self-care (01) ==
PROVIDERS: Emergency Provider Student in an Organized Health Care Education/Training Program
DX: S51.811A Laceration without foreign body of right forearm, initial encounter (principal); S43.401A Unspecified sprain of right shoulder joint, initial encounter; W22.8XXA Striking against or struck by other objects, initial encounter; E55.9 Vitamin D deficiency, unspecified; I10 Essential (primary) hypertension; E78.5 Hyperlipidemia, unspecified; Z85.528 Personal history of other malignant neoplasm of kidney
CPT/HCPCS: 73030; 73070; 99284; A4565